=== PATIENT | male | born 1970 | race Two or more races ===

== ENCOUNTER 2022-05-31 14:01 | Inpatient (IN) | payer MEDICAID ==
[~2022-05-31] VITALS: Ht 167.6 cm; Wt 88.5 kg
[2022-05-31] MEDS ORDERED: MORPHINE SULFATE 2 MG/ML SYRINGE IVP ONE (14:30)
[2022-05-31] MEDS ORDERED: SODIUM CHLORIDE 0.9% 1,000 ML IV ONE ×3 (14:30→18:30)
[2022-05-31] MEDS ORDERED: PERMETHRIN 5% 60 GM CREAM TP ONE (14:30)
[2022-05-31 15:16] LABS: BASOPHILS % (AUTO) 0.4 % (0.0-2.0); EOSINOPHILS % (AUTO) 1.3 % (1.0-6.0); HEMATOCRIT 40.2 % (41-53); HEMOGLOBIN 13.1 g/dL (13.5-17.5); LYMPHOCYTES # (AUTO) 0.8 K/uL (1.0-4.8); LYMPHOCYTES % (AUTO) 8.4 % (22.0-44.0); MEAN CORPUSCULAR HEMOGLOBIN 30.2 pg (26.0-34.0); MEAN CORPUSCULAR HGB CONC 32.7 G/dL (31.0-37.0); MEAN CORPUSCULAR VOLUME 93 fL (80-100); MONOCYTES # (AUTO) 0.5 K/uL (0.1-1.0); MONOCYTES % (AUTO) 5.4 % (2.0-9.0); NEUTROPHILS # (AUTO) 8.2 K/uL (1.8-7.7); NEUTROPHILS % (AUTO) 84.5 % (40.0-70.0); PLATELET COUNT (AUTO) 298 K/uL (150-450); RED BLOOD CELL COUNT(AUTO) 4.34 MIL/uL (4.50-5.90); RED CELL DISTRIBUTION WIDTH 15.2 % (11.5-14.5)
[2022-05-31 15:20] LABS: ANION GAP 8 mmol/L (8-16); CALCIUM, TOTAL 8.9 mg/dL (8.8-10.5); CARBON DIOXIDE 28 mmol/L (22-29); CHLORIDE 93 mmol/L (98-107); CREATININE 1.14 mg/dL (0.60-1.30); GLOMERULAR FILTR. RATE CALC > 60 mL/min (>60); GLUCOSE,RANDOM 305 mg/dL (70-110); POTASSIUM 4.1 mmol/L (3.5-5.1); SODIUM SERUM 129 mmol/L (136-145); UREA NITROGEN, BLOOD 18 mg/dL (7-18)
[2022-05-31 15:44] LABS: CREATINE KINASE, TOTAL ONLY 382 U/L (39-308)
[2022-05-31] MEDS ORDERED: VANCOMYCIN 1GM/WATER(PEG/NADA) 200 ML IV ONE (16:00)
[2022-05-31 16:31] LABS: COVID AG,FIA SOURCE NASOPHARYNGEAL
[2022-05-31 16:55] LABS: LACTIC ACID 6.4 mmol/L (0.4-2.0)
[2022-05-31] MEDS ORDERED: MORPHINE SULFATE 4 MG/ML SYRINGE IVP PRN (18:30)
[2022-05-31] MEDS ORDERED: DEXTROSE 50%-WATER 25 GM/50 ML SYRINGE IVP PRN ×2 (18:30→23:15)
[2022-05-31] MEDS ORDERED: ONDANSETRON HCL 4 MG/2 ML VIAL IVP PRN ×2 (18:30→23:15)
[2022-05-31] MEDS ORDERED: INSULIN LISPRO 100 UNITS/ML SQ PRN (18:30)
[2022-05-31] MEDS ORDERED: ACETAMINOPHEN 325 MG TABLET PO PRN ×2 (18:30→23:15)
[2022-05-31] MEDS ORDERED: HYDROCODONE/ACETAMINOPHEN 5-325 MG TABLET PO PRN (18:30)
[2022-05-31 23:01] LABS: GLUCOMETER DEV NAME(LOC) ERT.5; GLUCOSE,POINT OF CARE 185 MG/DL (70-110)
[2022-05-31] MEDS ORDERED: BISACODYL 10 MG RECTAL RECTAL SUPPOSITORY PR PRN (23:15)
[2022-05-31] MEDS ORDERED: ALBUTEROL SULFATE 2.5 MG/0.5 ML NEB SOLUTION NEB PRN (23:15)
[2022-05-31] MEDS ORDERED: IPRATROPIUM BROMIDE 0.5 MG/2.5 ML NEB SOLUTION NEB PRN (23:15)
[2022-05-31] MEDS ORDERED: ZOLPIDEM TARTRATE 5 MG TABLET PO PRN (23:15)
[2022-06-01] MEDS ORDERED: VANCOMYCIN HCL 500 MG in DEXTROSE 5%-WATER 100 ML IV ONE ×2
[2022-06-01 00:28] VITALS: BP 142/93
[2022-06-01] MEDS: INSULIN LISPRO 100 UNITS/ML SQ PRN ×5 (01:34→20:23)
[2022-06-01] MEDS ORDERED: INFLUENZA VIRUS VACCINE QVS 2022-23 (6MO+)/PF 60 MCG/0.5 ML SYRINGE IM. ONE (03:45)
[2022-06-01 04:06] LABS: GLUCOMETER DEV NAME(LOC) 5N.1C; GLUCOSE,POINT OF CARE 214 MG/DL (70-110)
[2022-06-01 05:28] VITALS: BP 134/75
[2022-06-01] MEDS: PANTOPRAZOLE SODIUM 40 MG DR TABLET PO SCH (07:55)
[2022-06-01] MEDS: HEPARIN SODIUM,PORCINE 5,000 UNITS/ML VIAL SQ SCH ×4 (08:00→23:30)
[2022-06-01] MEDS ORDERED: VANCOMYCIN 1GM/WATER(PEG/NADA) 200 ML IV SCH (08:00)
[2022-06-01 08:03] LABS: ANION GAP 8 mmol/L (8-16); CALCIUM, TOTAL 7.9 mg/dL (8.8-10.5); CARBON DIOXIDE 25 mmol/L (22-29); CHLORIDE 104 mmol/L (98-107); CREATININE 0.89 mg/dL (0.60-1.30); GLOMERULAR FILTR. RATE CALC > 60 mL/min (>60); GLUCOSE,RANDOM 176 mg/dL (70-110); POTASSIUM 3.2 mmol/L (3.5-5.1); SODIUM SERUM 137 mmol/L (136-145); UREA NITROGEN, BLOOD 13 mg/dL (7-18)
[2022-06-01 08:21] VITALS: BP 139/80
[2022-06-01 11:55] VITALS: BP 137/74
[2022-06-01 12:22] LABS: GLUCOMETER DEV NAME(LOC) 5S.2B; GLUCOSE,POINT OF CARE 235 MG/DL (70-110)
[2022-06-01] MEDS: PIPERACILLIN/TAZO 3.375 GM/D5W 50 ML IV SCH ×2 (15:10→20:23)
[2022-06-01] MEDS ORDERED: POTASSIUM CHLORIDE 20 MEQ ER TABLET PO ONE (15:45)
[2022-06-01] MEDS: VANCOMYCIN HCL 750 MG in DEXTROSE 5%-WATER 250 ML IV SCH ×2 (15:45→23:30)
[2022-06-01 16:26] VITALS: BP 140/80
[2022-06-01] MEDS: HYDROCODONE/ACETAMINOPHEN 5-325 MG TABLET PO PRN (18:26)
[2022-06-01 20:08] VITALS: BP 136/76
[2022-06-01 22:56] LABS: GLUCOMETER DEV NAME(LOC) 5S.2B; GLUCOSE,POINT OF CARE 169 MG/DL (70-110)
[2022-06-02 00:02] LABS: GLUCOMETER DEV NAME(LOC) 6N.2B; GLUCOSE,POINT OF CARE 221 MG/DL (70-110)
[2022-06-02] MEDS: PIPERACILLIN/TAZO 3.375 GM/D5W 50 ML IV SCH ×6 (02:45→20:49)
[2022-06-02 05:31] VITALS: BP 125/73
[2022-06-02] MEDS: INSULIN LISPRO 100 UNITS/ML SQ PRN ×4 (06:27→21:00)
[2022-06-02 06:30] LABS: ANION GAP 5 mmol/L (8-16); CARBON DIOXIDE 25 mmol/L (22-29); CHLORIDE 103 mmol/L (98-107); CREATININE 0.92 mg/dL (0.60-1.30); GLUCOSE,RANDOM 207 mg/dL (70-110); PHOSPHORUS 3.1 mg/dL (2.5-4.9); POTASSIUM 3.4 mmol/L (3.5-5.1); SODIUM SERUM 133 mmol/L (136-145); UREA NITROGEN, BLOOD 9 mg/dL (7-18)
[2022-06-02 06:40] LABS: GLOMERULAR FILTR. RATE CALC > 60 mL/min (>60)
[2022-06-02 07:18] VITALS: BP 106/72
[2022-06-02] MEDS: VANCOMYCIN 1GM/WATER(PEG/NADA) 200 ML IV SCH ×3 (08:15→23:36)
[2022-06-02] MEDS: MULTIVITAMINS WITH MINERALS, THERAPEUTIC TABLET PO SCH (08:15)
[2022-06-02] MEDS: PANTOPRAZOLE SODIUM 40 MG DR TABLET PO SCH (08:15)
[2022-06-02] MEDS: HEPARIN SODIUM,PORCINE 5,000 UNITS/ML VIAL SQ SCH ×3 (08:15→23:35)
[2022-06-02 08:46] LABS: GLUCOMETER DEV NAME(LOC) 6N.2B; GLUCOSE,POINT OF CARE 211 MG/DL (70-110)
[2022-06-02] MEDS: HYDROCODONE/ACETAMINOPHEN 5-325 MG TABLET PO PRN (10:51)
[2022-06-02] MEDS ORDERED: POTASSIUM CHLORIDE 20 MEQ ER TABLET PO ONE (11:30)
[2022-06-02] MEDS ORDERED: GADOTERATE MEGLUMINE 10 MMOL/20 ML VIAL IVP ONE (14:00)
[2022-06-02 15:37] VITALS: BP 135/80
[2022-06-02 17:51] LABS: GLUCOMETER DEV NAME(LOC) 6N.1; GLUCOSE,POINT OF CARE 238 MG/DL (70-110)
[2022-06-02 19:51] LABS: GLUCOMETER DEV NAME(LOC) 6N.1; GLUCOSE,POINT OF CARE 179 MG/DL (70-110)
[2022-06-02 20:30] VITALS: BP 140/71
[2022-06-02 22:51] LABS: GLUCOMETER DEV NAME(LOC) 6N.1; GLUCOSE,POINT OF CARE 229 MG/DL (70-110)
[2022-06-03] MEDS: PIPERACILLIN/TAZO 3.375 GM/D5W 50 ML IV SCH ×4 (03:03→20:25)
[2022-06-03 05:15] VITALS: BP 146/75
[2022-06-03] MEDS: INSULIN LISPRO 100 UNITS/ML SQ PRN ×4 (05:52→20:25)
[2022-06-03 06:59] LABS: ANION GAP 8 mmol/L (8-16); C-REACTIVE PROTEIN QUANT 4.58 mg/dL (0.00-0.30); CALCIUM, TOTAL 8.3 mg/dL (8.8-10.5); CARBON DIOXIDE 26 mmol/L (22-29); CHLORIDE 103 mmol/L (98-107); CREATININE 0.86 mg/dL (0.60-1.30); GLUCOSE,RANDOM 187 mg/dL (70-110); POTASSIUM 3.8 mmol/L (3.5-5.1); SODIUM SERUM 137 mmol/L (136-145); UREA NITROGEN, BLOOD 6 mg/dL (7-18)
[2022-06-03 07:01] LABS: GLUCOMETER DEV NAME(LOC) 6N.2B; GLUCOSE,POINT OF CARE 199 MG/DL (70-110)
[2022-06-03 07:04] LABS: GLOMERULAR FILTR. RATE CALC > 60 mL/min (>60)
[2022-06-03] MEDS: VANCOMYCIN 1GM/WATER(PEG/NADA) 200 ML IV SCH ×3 (08:02→23:37)
[2022-06-03] MEDS: PANTOPRAZOLE SODIUM 40 MG DR TABLET PO SCH (08:03)
[2022-06-03] MEDS: HEPARIN SODIUM,PORCINE 5,000 UNITS/ML VIAL SQ SCH ×3 (08:03→23:36)
[2022-06-03] MEDS: MULTIVITAMINS WITH MINERALS, THERAPEUTIC TABLET PO SCH (08:03)
[2022-06-03 08:20] VITALS: BP 121/78
[2022-06-03 10:07] LABS: BASOPHILS % (AUTO) 0.9 % (0.0-2.0); EOSINOPHILS % (AUTO) 5.1 % (1.0-6.0); HEMOGLOBIN 9.4 g/dL (13.5-17.5); LYMPHOCYTES # (AUTO) 1.1 K/uL (1.0-4.8); LYMPHOCYTES % (AUTO) 25.9 % (22.0-44.0); MEAN CORPUSCULAR HGB CONC 32.5 G/dL (31.0-37.0); MEAN CORPUSCULAR VOLUME 93 fL (80-100); MONOCYTES # (AUTO) 0.3 K/uL (0.1-1.0); MONOCYTES % (AUTO) 7.1 % (2.0-9.0); NEUTROPHILS # (AUTO) 2.7 K/uL (1.8-7.7); PLATELET COUNT (AUTO) 188 K/uL (150-450); RED BLOOD CELL COUNT(AUTO) 3.13 MIL/uL (4.50-5.90); RED CELL DISTRIBUTION WIDTH 14.8 % (11.5-14.5)
[2022-06-03 10:50] LABS: ANION GAP 9 mmol/L (8-16); CARBON DIOXIDE 25 mmol/L (22-29); CHLORIDE 101 mmol/L (98-107); CREATININE 0.84 mg/dL (0.60-1.30); GLUCOSE,RANDOM 269 mg/dL (70-110); POTASSIUM 3.7 mmol/L (3.5-5.1); SODIUM SERUM 135 mmol/L (136-145); UREA NITROGEN, BLOOD 7 mg/dL (7-18)
[2022-06-03 10:54] LABS: GLOMERULAR FILTR. RATE CALC > 60 mL/min (>60)
[2022-06-03 10:56] LABS: ALANINE AMINOTRANSFERASE 23 U/L (12-78); ALBUMIN 2.1 g/dL (3.4-5.0); ALKALINE PHOSPHATASE 108 U/L (46-116); ASPARTATE AMINOTRANSFERASE 19 U/L (15-37); BILIRUBIN,TOTAL 0.4 mg/dL (0.1-1.0); TOTAL PROTEIN, SERUM 6.9 g/dL (6.4-8.2)
[2022-06-03 14:02] LABS: GLUCOMETER DEV NAME(LOC) 6N.2B; GLUCOSE,POINT OF CARE 243 MG/DL (70-110)
[2022-06-03 20:46] VITALS: BP 125/76
[2022-06-03 21:51] LABS: GLUCOMETER DEV NAME(LOC) 6N.2B; GLUCOSE,POINT OF CARE 179 MG/DL (70-110)
[2022-06-03 22:30] LABS: GLUCOMETER DEV NAME(LOC) 6N.1; GLUCOSE,POINT OF CARE 172 MG/DL (70-110)
[2022-06-04 04:28] VITALS: BP 134/84
[2022-06-04] MEDS: PIPERACILLIN/TAZO 3.375 GM/D5W 50 ML IV SCH ×3 (04:30→16:22)
[2022-06-04] MEDS: INSULIN LISPRO 100 UNITS/ML SQ PRN ×4 (05:35→21:02)
[2022-06-04 07:14] LABS: ANION GAP 11 mmol/L (8-16); CALCIUM, TOTAL 8.5 mg/dL (8.8-10.5); CARBON DIOXIDE 25 mmol/L (22-29); CHLORIDE 101 mmol/L (98-107); CREATININE 0.96 mg/dL (0.60-1.30); GLOMERULAR FILTR. RATE CALC > 60 mL/min (>60); GLUCOSE,RANDOM 181 mg/dL (70-110); POTASSIUM 3.7 mmol/L (3.5-5.1); SODIUM SERUM 137 mmol/L (136-145); UREA NITROGEN, BLOOD 7 mg/dL (7-18); VANCOMYCIN,RANDOM 22.6 mcg/mL (25.0-50.0)
[2022-06-04 07:16] LABS: GLUCOMETER DEV NAME(LOC) 6N.2B; GLUCOSE,POINT OF CARE 194 MG/DL (70-110)
[2022-06-04 08:35] VITALS: BP 143/88
[2022-06-04] MEDS: PANTOPRAZOLE SODIUM 40 MG DR TABLET PO SCH (08:53)
[2022-06-04] MEDS: MULTIVITAMINS WITH MINERALS, THERAPEUTIC TABLET PO SCH (08:53)
[2022-06-04] MEDS: HEPARIN SODIUM,PORCINE 5,000 UNITS/ML VIAL SQ SCH ×3 (08:53→23:49)
[2022-06-04] MEDS: VANCOMYCIN 1GM/WATER(PEG/NADA) 200 ML IV SCH (09:49)
[2022-06-04 11:31] LABS: GLUCOMETER DEV NAME(LOC) 6N.2B; GLUCOSE,POINT OF CARE 219 MG/DL (70-110)
[2022-06-04] MEDS ORDERED: SODIUM CHLORIDE 0.9% IRRIG BTL 1,000 ML IRRIG ONE (15:04)
[2022-06-04 16:00] VITALS: BP 138/70
[2022-06-04] MEDS ORDERED: VANCOMYCIN HCL 750 MG in DEXTROSE 5%-WATER 250 ML IV SCH (16:00)
[2022-06-04 20:16] LABS: GLUCOMETER DEV NAME(LOC) 6N.2B; GLUCOSE,POINT OF CARE 180 MG/DL (70-110)
[2022-06-04 20:20] VITALS: BP 142/79
[2022-06-04] MEDS ORDERED: SODIUM CHLORIDE 0.9% 500 ML IV ONE (21:00)
[2022-06-04] MEDS: AMPICILLIN SODIUM/SULBACTAM NA 3 GM in SODIUM CHLORIDE 0.9% 100 ML IV SCH (21:01)
[2022-06-04 21:47] LABS: GLUCOMETER DEV NAME(LOC) 6N.1; GLUCOSE,POINT OF CARE 223 MG/DL (70-110)
[2022-06-05 03:45] VITALS: BP 134/75
[2022-06-05] MEDS: AMPICILLIN SODIUM/SULBACTAM NA 3 GM in SODIUM CHLORIDE 0.9% 100 ML IV SCH ×4 (04:47→21:54)
[2022-06-05] MEDS: INSULIN LISPRO 100 UNITS/ML SQ PRN ×3 (05:57→21:52)
[2022-06-05 06:26] LABS: GLUCOMETER DEV NAME(LOC) 6N.2B; GLUCOSE,POINT OF CARE 179 MG/DL (70-110)
[2022-06-05 06:59] LABS: BASOPHILS % (AUTO) 0.7 % (0.0-2.0); EOSINOPHILS % (AUTO) 3.9 % (1.0-6.0); HEMATOCRIT 29.8 % (41-53); HEMOGLOBIN 9.9 g/dL (13.5-17.5); LYMPHOCYTES # (AUTO) 1.4 K/uL (1.0-4.8); MEAN CORPUSCULAR HEMOGLOBIN 30.3 pg (26.0-34.0); MEAN CORPUSCULAR HGB CONC 33.1 G/dL (31.0-37.0); MEAN CORPUSCULAR VOLUME 92 fL (80-100); MONOCYTES # (AUTO) 0.4 K/uL (0.1-1.0); MONOCYTES % (AUTO) 6.7 % (2.0-9.0); NEUTROPHILS # (AUTO) 4.2 K/uL (1.8-7.7); NEUTROPHILS % (AUTO) 66.7 % (40.0-70.0); PLATELET COUNT (AUTO) 241 K/uL (150-450); RED BLOOD CELL COUNT(AUTO) 3.26 MIL/uL (4.50-5.90); RED CELL DISTRIBUTION WIDTH 14.8 % (11.5-14.5)
[2022-06-05 07:25] VITALS: BP 135/81
[2022-06-05 07:43] LABS: ANION GAP 8 mmol/L (8-16); CALCIUM, TOTAL 8.2 mg/dL (8.8-10.5); CARBON DIOXIDE 25 mmol/L (22-29); CHLORIDE 105 mmol/L (98-107); CREATININE 0.83 mg/dL (0.60-1.30); GLOMERULAR FILTR. RATE CALC > 60 mL/min (>60); GLUCOSE,RANDOM 180 mg/dL (70-110); POTASSIUM 3.6 mmol/L (3.5-5.1); SODIUM SERUM 138 mmol/L (136-145); UREA NITROGEN, BLOOD 9 mg/dL (7-18)
[2022-06-05] MEDS: HEPARIN SODIUM,PORCINE 5,000 UNITS/ML VIAL SQ SCH ×3 (08:55→23:51)
[2022-06-05] MEDS: PANTOPRAZOLE SODIUM 40 MG DR TABLET PO SCH (08:55)
[2022-06-05] MEDS: MULTIVITAMINS WITH MINERALS, THERAPEUTIC TABLET PO SCH (08:55)
[2022-06-05 10:29] LABS: C-REACTIVE PROTEIN QUANT 2.21 mg/dL (0.00-0.30)
[2022-06-05 15:26] VITALS: BP 132/80
[2022-06-05 19:25] VITALS: BP 130/75
[2022-06-05 19:56] LABS: GLUCOMETER DEV NAME(LOC) 6N.1; GLUCOSE,POINT OF CARE 268 MG/DL (70-110)
[2022-06-05 20:01] LABS: GLUCOMETER DEV NAME(LOC) 6N.2B; GLUCOSE,POINT OF CARE 229 MG/DL (70-110)
[2022-06-05 20:01] LABS: GLUCOMETER DEV NAME(LOC) 6N.1; GLUCOSE,POINT OF CARE 155 MG/DL (70-110)
[2022-06-06 03:34] VITALS: BP 157/85
[2022-06-06] MEDS: AMPICILLIN SODIUM/SULBACTAM NA 3 GM in SODIUM CHLORIDE 0.9% 100 ML IV SCH ×4 (03:56→21:51)
[2022-06-06] MEDS ORDERED: SODIUM CHLORIDE 0.9% 500 ML IV ONE (04:22)
[2022-06-06 06:16] LABS: GLUCOMETER DEV NAME(LOC) 6N.2B; GLUCOSE,POINT OF CARE 149 MG/DL (70-110)
[2022-06-06] MEDS: INSULIN LISPRO 100 UNITS/ML SQ PRN ×3 (06:31→21:49)
[2022-06-06 06:57] LABS: ANION GAP 8 mmol/L (8-16); CALCIUM, TOTAL 8.4 mg/dL (8.8-10.5); CARBON DIOXIDE 27 mmol/L (22-29); CHLORIDE 103 mmol/L (98-107); GLUCOSE,RANDOM 178 mg/dL (70-110); POTASSIUM 3.7 mmol/L (3.5-5.1); SODIUM SERUM 138 mmol/L (136-145); UREA NITROGEN, BLOOD 9 mg/dL (7-18)
[2022-06-06 07:01] LABS: GLOMERULAR FILTR. RATE CALC > 60 mL/min (>60)
[2022-06-06 07:22] LABS: BASOPHILS % (AUTO) 0.6 % (0.0-2.0); EOSINOPHILS % (AUTO) 3.6 % (1.0-6.0); HEMATOCRIT 31.2 % (41-53); HEMOGLOBIN 10.3 g/dL (13.5-17.5); LYMPHOCYTES # (AUTO) 1.3 K/uL (1.0-4.8); LYMPHOCYTES % (AUTO) 17.5 % (22.0-44.0); MEAN CORPUSCULAR HGB CONC 32.9 G/dL (31.0-37.0); MEAN CORPUSCULAR VOLUME 91 fL (80-100); MONOCYTES # (AUTO) 0.4 K/uL (0.1-1.0); MONOCYTES % (AUTO) 5.8 % (2.0-9.0); NEUTROPHILS # (AUTO) 5.3 K/uL (1.8-7.7); NEUTROPHILS % (AUTO) 72.5 % (40.0-70.0); PLATELET COUNT (AUTO) 235 K/uL (150-450); RED BLOOD CELL COUNT(AUTO) 3.43 MIL/uL (4.50-5.90)
[2022-06-06 07:36] LABS: GLUCOMETER DEV NAME(LOC) 6N.2B; GLUCOSE,POINT OF CARE 163 MG/DL (70-110)
[2022-06-06 08:08] VITALS: BP 141/87
[2022-06-06] MEDS: HEPARIN SODIUM,PORCINE 5,000 UNITS/ML VIAL SQ SCH ×3 (08:32→23:15)
[2022-06-06] MEDS: MULTIVITAMINS WITH MINERALS, THERAPEUTIC TABLET PO SCH (08:32)
[2022-06-06] MEDS: PANTOPRAZOLE SODIUM 40 MG DR TABLET PO SCH (08:32)
[2022-06-06 13:06] LABS: GLUCOMETER DEV NAME(LOC) 6N.1; GLUCOSE,POINT OF CARE 147 MG/DL (70-110)
[2022-06-06 16:14] VITALS: BP 144/73
[2022-06-06 20:00] VITALS: BP 122/70
[2022-06-06 20:36] LABS: GLUCOMETER DEV NAME(LOC) 6N.1; GLUCOSE,POINT OF CARE 132 MG/DL (70-110)
[2022-06-06 22:32] LABS: GLUCOMETER DEV NAME(LOC) 6N.2B; GLUCOSE,POINT OF CARE 215 MG/DL (70-110)
[2022-06-07] MEDS: AMPICILLIN SODIUM/SULBACTAM NA 3 GM in SODIUM CHLORIDE 0.9% 100 ML IV SCH ×4 (03:55→23:10)
[2022-06-07 04:00] VITALS: BP 140/85
[2022-06-07] MEDS: INSULIN LISPRO 100 UNITS/ML SQ PRN ×4 (06:30→20:30)
[2022-06-07 06:53] LABS: BASOPHILS % (AUTO) 0.6 % (0.0-2.0); EOSINOPHILS % (AUTO) 3.7 % (1.0-6.0); HEMATOCRIT 31.1 % (41-53); HEMOGLOBIN 10.4 g/dL (13.5-17.5); LYMPHOCYTES # (AUTO) 1.3 K/uL (1.0-4.8); LYMPHOCYTES % (AUTO) 23.3 % (22.0-44.0); MEAN CORPUSCULAR HEMOGLOBIN 30.6 pg (26.0-34.0); MEAN CORPUSCULAR HGB CONC 33.5 G/dL (31.0-37.0); MEAN CORPUSCULAR VOLUME 92 fL (80-100); MONOCYTES # (AUTO) 0.4 K/uL (0.1-1.0); MONOCYTES % (AUTO) 6.5 % (2.0-9.0); NEUTROPHILS # (AUTO) 3.7 K/uL (1.8-7.7); NEUTROPHILS % (AUTO) 65.9 % (40.0-70.0); PLATELET COUNT (AUTO) 233 K/uL (150-450); RED BLOOD CELL COUNT(AUTO) 3.39 MIL/uL (4.50-5.90); RED CELL DISTRIBUTION WIDTH 15.1 % (11.5-14.5)
[2022-06-07 07:22] LABS: ANION GAP 8 mmol/L (8-16); C-REACTIVE PROTEIN QUANT 2.21 mg/dL (0.00-0.30); CALCIUM, TOTAL 8.7 mg/dL (8.8-10.5); CARBON DIOXIDE 27 mmol/L (22-29); CHLORIDE 103 mmol/L (98-107); CREATININE 0.95 mg/dL (0.60-1.30); GLUCOSE,RANDOM 175 mg/dL (70-110); POTASSIUM 3.8 mmol/L (3.5-5.1); SODIUM SERUM 138 mmol/L (136-145); UREA NITROGEN, BLOOD 12 mg/dL (7-18)
[2022-06-07 07:24] LABS: GLOMERULAR FILTR. RATE CALC > 60 mL/min (>60)
[2022-06-07 07:56] LABS: GLUCOMETER DEV NAME(LOC) 6N.2B; GLUCOSE,POINT OF CARE 161 MG/DL (70-110)
[2022-06-07 08:00] VITALS: BP 143/91
[2022-06-07] MEDS: HEPARIN SODIUM,PORCINE 5,000 UNITS/ML VIAL SQ SCH ×3 (08:41→23:11)
[2022-06-07] MEDS: MULTIVITAMINS WITH MINERALS, THERAPEUTIC TABLET PO SCH (08:41)
[2022-06-07] MEDS: PANTOPRAZOLE SODIUM 40 MG DR TABLET PO SCH (08:46)
[2022-06-07 13:36] LABS: GLUCOMETER DEV NAME(LOC) 6N.2B; GLUCOSE,POINT OF CARE 178 MG/DL (70-110)
[2022-06-07 15:11] VITALS: BP 128/85
[2022-06-07 18:36] LABS: GLUCOMETER DEV NAME(LOC) 6N.2B; GLUCOSE,POINT OF CARE 171 MG/DL (70-110)
[2022-06-07 20:00] VITALS: BP 132/75
[2022-06-07 21:31] LABS: GLUCOMETER DEV NAME(LOC) 6N.1; GLUCOSE,POINT OF CARE 222 MG/DL (70-110)
[2022-06-08] MEDS: AMPICILLIN SODIUM/SULBACTAM NA 3 GM in SODIUM CHLORIDE 0.9% 100 ML IV SCH ×4 (04:34→21:39)
[2022-06-08 05:00] VITALS: BP 153/81
[2022-06-08] MEDS: INSULIN LISPRO 100 UNITS/ML SQ PRN ×4 (05:37→21:49)
[2022-06-08 06:41] LABS: GLUCOMETER DEV NAME(LOC) 6N.2B; GLUCOSE,POINT OF CARE 170 MG/DL (70-110)
[2022-06-08] MEDS ORDERED: SODIUM CHLORIDE 0.9% 500 ML IV ONE (06:43)
[2022-06-08] MEDS: MULTIVITAMINS WITH MINERALS, THERAPEUTIC TABLET PO SCH (07:44)
[2022-06-08] MEDS: PANTOPRAZOLE SODIUM 40 MG DR TABLET PO SCH (07:44)
[2022-06-08] MEDS: HEPARIN SODIUM,PORCINE 5,000 UNITS/ML VIAL SQ SCH ×3 (07:44→23:20)
[2022-06-08 07:59] VITALS: BP 150/78
[2022-06-08 12:07] LABS: GLUCOMETER DEV NAME(LOC) 6N.2B; GLUCOSE,POINT OF CARE 217 MG/DL (70-110)
[2022-06-08 16:21] VITALS: BP 146/76
[2022-06-08 18:21] LABS: GLUCOMETER DEV NAME(LOC) 6N.2B; GLUCOSE,POINT OF CARE 144 MG/DL (70-110)
[2022-06-08 20:22] VITALS: BP 146/75
[2022-06-08 22:56] LABS: GLUCOMETER DEV NAME(LOC) 6N.1; GLUCOSE,POINT OF CARE 224 MG/DL (70-110)
[2022-06-09] MEDS: AMPICILLIN SODIUM/SULBACTAM NA 3 GM in SODIUM CHLORIDE 0.9% 100 ML IV SCH ×4 (04:22→21:17)
[2022-06-09] MEDS: MAGNESIUM HYDROXIDE SUSPENSION 30 ML UDCUP PO PRN (04:29)
[2022-06-09 04:44] VITALS: BP 140/81
[2022-06-09 05:54] LABS: BASOPHILS % (AUTO) 0.5 % (0.0-2.0); EOSINOPHILS % (AUTO) 3.6 % (1.0-6.0); HEMATOCRIT 31.1 % (41-53); HEMOGLOBIN 10.3 g/dL (13.5-17.5); LYMPHOCYTES # (AUTO) 1.5 K/uL (1.0-4.8); MEAN CORPUSCULAR HEMOGLOBIN 30.2 pg (26.0-34.0); MEAN CORPUSCULAR HGB CONC 33.1 G/dL (31.0-37.0); MEAN CORPUSCULAR VOLUME 91 fL (80-100); MONOCYTES # (AUTO) 0.4 K/uL (0.1-1.0); MONOCYTES % (AUTO) 6.2 % (2.0-9.0); NEUTROPHILS # (AUTO) 4.7 K/uL (1.8-7.7); NEUTROPHILS % (AUTO) 67.7 % (40.0-70.0); PLATELET COUNT (AUTO) 243 K/uL (150-450); RED CELL DISTRIBUTION WIDTH 15.1 % (11.5-14.5)
[2022-06-09] MEDS: INSULIN LISPRO 100 UNITS/ML SQ PRN ×3 (06:05→21:14)
[2022-06-09 06:09] LABS: ALANINE AMINOTRANSFERASE 31 U/L (12-78); ALBUMIN 2.7 g/dL (3.4-5.0); ALKALINE PHOSPHATASE 110 U/L (46-116); ANION GAP 7 mmol/L (8-16); ASPARTATE AMINOTRANSFERASE 27 U/L (15-37); BILIRUBIN,TOTAL 0.4 mg/dL (0.1-1.0); C-REACTIVE PROTEIN QUANT 1.42 mg/dL (0.00-0.30); CALCIUM, TOTAL 8.6 mg/dL (8.8-10.5); CARBON DIOXIDE 26 mmol/L (22-29); CHLORIDE 104 mmol/L (98-107); CREATININE 0.87 mg/dL (0.60-1.30); GLUCOSE,RANDOM 176 mg/dL (70-110); POTASSIUM 3.5 mmol/L (3.5-5.1); SODIUM SERUM 137 mmol/L (136-145); TOTAL PROTEIN, SERUM 7.8 g/dL (6.4-8.2); UREA NITROGEN, BLOOD 11 mg/dL (7-18)
[2022-06-09 06:11] LABS: GLOMERULAR FILTR. RATE CALC > 60 mL/min (>60)
[2022-06-09 07:59] VITALS: BP 149/84
[2022-06-09] MEDS: MULTIVITAMINS WITH MINERALS, THERAPEUTIC TABLET PO SCH (09:31)
[2022-06-09] MEDS: PANTOPRAZOLE SODIUM 40 MG DR TABLET PO SCH (09:31)
[2022-06-09] MEDS: HEPARIN SODIUM,PORCINE 5,000 UNITS/ML VIAL SQ SCH ×3 (09:31→23:24)
[2022-06-09 18:56] LABS: GLUCOMETER DEV NAME(LOC) 6N.2B; GLUCOSE,POINT OF CARE 173 MG/DL (70-110)
[2022-06-09 18:56] LABS: GLUCOMETER DEV NAME(LOC) 6N.2B; GLUCOSE,POINT OF CARE 167 MG/DL (70-110)
[2022-06-09 18:56] LABS: GLUCOMETER DEV NAME(LOC) 6N.1; GLUCOSE,POINT OF CARE 133 MG/DL (70-110)
[2022-06-09 20:00] VITALS: BP 131/79
[2022-06-09 23:36] LABS: GLUCOMETER DEV NAME(LOC) 6N.1; GLUCOSE,POINT OF CARE 197 MG/DL (70-110)
[2022-06-10] MEDS: AMPICILLIN SODIUM/SULBACTAM NA 3 GM in SODIUM CHLORIDE 0.9% 100 ML IV SCH ×4 (03:06→21:36)
[2022-06-10 05:10] VITALS: BP 135/67
[2022-06-10] MEDS: INSULIN LISPRO 100 UNITS/ML SQ PRN ×3 (05:43→21:37)
[2022-06-10 06:32] LABS: GLUCOMETER DEV NAME(LOC) 6N.2B; GLUCOSE,POINT OF CARE 153 MG/DL (70-110)
[2022-06-10 07:16] VITALS: BP 128/74
[2022-06-10] MEDS: PANTOPRAZOLE SODIUM 40 MG DR TABLET PO SCH (08:25)
[2022-06-10] MEDS: HEPARIN SODIUM,PORCINE 5,000 UNITS/ML VIAL SQ SCH ×3 (08:25→23:33)
[2022-06-10] MEDS: MULTIVITAMINS WITH MINERALS, THERAPEUTIC TABLET PO SCH (08:25)
[2022-06-10 12:26] LABS: GLUCOMETER DEV NAME(LOC) 6N.2B; GLUCOSE,POINT OF CARE 187 MG/DL (70-110)
[2022-06-10 15:00] VITALS: BP 136/81
[2022-06-10 17:47] LABS: GLUCOMETER DEV NAME(LOC) 6N.1; GLUCOSE,POINT OF CARE 114 MG/DL (70-110)
[2022-06-10 19:10] VITALS: BP 140/84
[2022-06-10 23:16] LABS: GLUCOMETER DEV NAME(LOC) 6N.2B; GLUCOSE,POINT OF CARE 155 MG/DL (70-110)
[2022-06-11] MEDS: AMPICILLIN SODIUM/SULBACTAM NA 3 GM in SODIUM CHLORIDE 0.9% 100 ML IV SCH ×4 (03:24→21:27)
[2022-06-11] MEDS ORDERED: SODIUM CHLORIDE 0.9% 500 ML IV ONE (03:24)
[2022-06-11 03:38] VITALS: BP 131/78
[2022-06-11] MEDS: INSULIN LISPRO 100 UNITS/ML SQ PRN ×4 (06:23→21:27)
[2022-06-11 07:26] VITALS: BP 132/76
[2022-06-11 07:26] LABS: GLUCOMETER DEV NAME(LOC) 6N.2B; GLUCOSE,POINT OF CARE 166 MG/DL (70-110)
[2022-06-11] MEDS: MULTIVITAMINS WITH MINERALS, THERAPEUTIC TABLET PO SCH (08:58)
[2022-06-11] MEDS: PANTOPRAZOLE SODIUM 40 MG DR TABLET PO SCH (08:58)
[2022-06-11] MEDS: HEPARIN SODIUM,PORCINE 5,000 UNITS/ML VIAL SQ SCH ×3 (08:58→23:33)
[2022-06-11 14:41] LABS: GLUCOMETER DEV NAME(LOC) 6N.2B; GLUCOSE,POINT OF CARE 162 MG/DL (70-110)
[2022-06-11 15:54] VITALS: BP 140/78
[2022-06-11 18:36] LABS: GLUCOMETER DEV NAME(LOC) 6N.2B; GLUCOSE,POINT OF CARE 182 MG/DL (70-110)
[2022-06-11 19:50] VITALS: BP 125/77
[2022-06-11 22:02] LABS: GLUCOMETER DEV NAME(LOC) 6N.2B; GLUCOSE,POINT OF CARE 178 MG/DL (70-110)
[2022-06-12] MEDS: AMPICILLIN SODIUM/SULBACTAM NA 3 GM in SODIUM CHLORIDE 0.9% 100 ML IV SCH ×4 (03:41→23:09)
[2022-06-12 04:25] VITALS: BP 135/79
[2022-06-12] MEDS: INSULIN LISPRO 100 UNITS/ML SQ PRN ×3 (06:41→20:12)
[2022-06-12 06:47] LABS: BASOPHILS % (AUTO) 0.8 % (0.0-2.0); EOSINOPHILS % (AUTO) 4.1 % (1.0-6.0); HEMATOCRIT 31.7 % (41-53); HEMOGLOBIN 10.9 g/dL (13.5-17.5); LYMPHOCYTES # (AUTO) 1.7 K/uL (1.0-4.8); LYMPHOCYTES % (AUTO) 27.8 % (22.0-44.0); MEAN CORPUSCULAR HEMOGLOBIN 31.4 pg (26.0-34.0); MEAN CORPUSCULAR HGB CONC 34.2 G/dL (31.0-37.0); MEAN CORPUSCULAR VOLUME 92 fL (80-100); MONOCYTES # (AUTO) 0.4 K/uL (0.1-1.0); NEUTROPHILS # (AUTO) 3.8 K/uL (1.8-7.7); NEUTROPHILS % (AUTO) 61.3 % (40.0-70.0); PLATELET COUNT (AUTO) 234 K/uL (150-450); RED BLOOD CELL COUNT(AUTO) 3.45 MIL/uL (4.50-5.90)
[2022-06-12 07:45] LABS: ALANINE AMINOTRANSFERASE 27 U/L (12-78); ALKALINE PHOSPHATASE 100 U/L (46-116); ANION GAP 7 mmol/L (8-16); ASPARTATE AMINOTRANSFERASE 21 U/L (15-37); BILIRUBIN,TOTAL 0.4 mg/dL (0.1-1.0); C-REACTIVE PROTEIN QUANT 0.79 mg/dL (0.00-0.30); CALCIUM, TOTAL 8.7 mg/dL (8.8-10.5); CARBON DIOXIDE 26 mmol/L (22-29); CHLORIDE 104 mmol/L (98-107); CREATININE 1.11 mg/dL (0.60-1.30); GLOMERULAR FILTR. RATE CALC > 60 mL/min (>60); GLUCOSE,RANDOM 150 mg/dL (70-110); POTASSIUM 3.9 mmol/L (3.5-5.1); SODIUM SERUM 137 mmol/L (136-145); TOTAL PROTEIN, SERUM 8.2 g/dL (6.4-8.2); UREA NITROGEN, BLOOD 17 mg/dL (7-18)
[2022-06-12 07:57] VITALS: BP 137/57
[2022-06-12] MEDS: HEPARIN SODIUM,PORCINE 5,000 UNITS/ML VIAL SQ SCH ×3 (08:47→23:09)
[2022-06-12] MEDS: PANTOPRAZOLE SODIUM 40 MG DR TABLET PO SCH (08:47)
[2022-06-12] MEDS: MULTIVITAMINS WITH MINERALS, THERAPEUTIC TABLET PO SCH (08:47)
[2022-06-12 13:36] LABS: GLUCOMETER DEV NAME(LOC) 6N.2B; GLUCOSE,POINT OF CARE 169 MG/DL (70-110)
[2022-06-12 13:36] LABS: GLUCOMETER DEV NAME(LOC) 6N.1; GLUCOSE,POINT OF CARE 174 MG/DL (70-110)
[2022-06-12 15:56] VITALS: BP 138/72
[2022-06-12 20:01] LABS: GLUCOMETER DEV NAME(LOC) 6N.1; GLUCOSE,POINT OF CARE 124 MG/DL (70-110)
[2022-06-12 20:02] VITALS: BP 123/65
[2022-06-12] MEDS: MAGNESIUM HYDROXIDE SUSPENSION 30 ML UDCUP PO PRN (20:06)
[2022-06-12 22:41] LABS: GLUCOMETER DEV NAME(LOC) 6N.1; GLUCOSE,POINT OF CARE 184 MG/DL (70-110)
[2022-06-13] MEDS: AMPICILLIN SODIUM/SULBACTAM NA 3 GM in SODIUM CHLORIDE 0.9% 100 ML IV SCH ×4 (04:19→21:39)
[2022-06-13 05:09] VITALS: BP 128/78
[2022-06-13] MEDS: INSULIN LISPRO 100 UNITS/ML SQ PRN ×3 (05:55→21:37)
[2022-06-13 06:51] LABS: GLUCOMETER DEV NAME(LOC) 6N.1; GLUCOSE,POINT OF CARE 142 MG/DL (70-110)
[2022-06-13] MEDS: PANTOPRAZOLE SODIUM 40 MG DR TABLET PO SCH (07:57)
[2022-06-13] MEDS: MULTIVITAMINS WITH MINERALS, THERAPEUTIC TABLET PO SCH (07:57)
[2022-06-13] MEDS: HEPARIN SODIUM,PORCINE 5,000 UNITS/ML VIAL SQ SCH ×2 (07:57→15:46)
[2022-06-13 08:17] VITALS: BP 114/75
[2022-06-13 11:15] LABS: GLUCOMETER DEV NAME(LOC) 6N.1; GLUCOSE,POINT OF CARE 184 MG/DL (70-110)
[2022-06-13 15:55] VITALS: BP 115/67
[2022-06-13] MEDS ORDERED: SODIUM CHLORIDE 0.9% 500 ML IV ONE (18:26)
[2022-06-13 19:51] LABS: GLUCOMETER DEV NAME(LOC) 6N.1; GLUCOSE,POINT OF CARE 90 MG/DL (70-110)
[2022-06-13 19:56] VITALS: BP 133/69
[2022-06-14] MEDS: HEPARIN SODIUM,PORCINE 5,000 UNITS/ML VIAL SQ SCH ×3 (00:40→15:42)
[2022-06-14 03:26] LABS: GLUCOMETER DEV NAME(LOC) 6N.1; GLUCOSE,POINT OF CARE 168 MG/DL (70-110)
[2022-06-14] MEDS: AMPICILLIN SODIUM/SULBACTAM NA 3 GM in SODIUM CHLORIDE 0.9% 100 ML IV SCH ×4 (03:55→21:44)
[2022-06-14 04:04] VITALS: BP 123/67
[2022-06-14] MEDS: INSULIN LISPRO 100 UNITS/ML SQ PRN ×4 (06:31→21:41)
[2022-06-14 06:52] LABS: GLUCOMETER DEV NAME(LOC) 6N.1; GLUCOSE,POINT OF CARE 143 MG/DL (70-110)
[2022-06-14 07:57] VITALS: BP 117/61
[2022-06-14] MEDS: PANTOPRAZOLE SODIUM 40 MG DR TABLET PO SCH (08:49)
[2022-06-14] MEDS: MULTIVITAMINS WITH MINERALS, THERAPEUTIC TABLET PO SCH (08:49)
[2022-06-14 16:02] LABS: GLUCOMETER DEV NAME(LOC) 6N.2B; GLUCOSE,POINT OF CARE 145 MG/DL (70-110)
[2022-06-14 16:06] VITALS: BP 125/65
[2022-06-14] MEDS ORDERED: SODIUM CL IRRIG SOLN BAG 6,000 ML IRRIG ONE (19:09)
[2022-06-14] MEDS ORDERED: SODIUM CHLORIDE 0.9% 1,000 ML ONE (19:23)
[2022-06-14] MEDS ORDERED: VANCOMYCIN HCL 1 GM/VIAL IRRIG ONE (19:36)
[2022-06-14 20:13] LABS: GLUCOMETER DEV NAME(LOC) 6N.2B; GLUCOSE,POINT OF CARE 150 MG/DL (70-110)
[2022-06-14 20:25] VITALS: BP 155/81
[2022-06-14] MEDS ORDERED: CHLORHEXIDINE GLUCONATE 4% 118 ML TOPICAL LIQUID TP ONE (20:29)
[2022-06-14 22:46] LABS: GLUCOMETER DEV NAME(LOC) 6N.2B; GLUCOSE,POINT OF CARE 164 MG/DL (70-110)
[2022-06-15] MEDS: AMPICILLIN SODIUM/SULBACTAM NA 3 GM in SODIUM CHLORIDE 0.9% 100 ML IV SCH ×4 (04:20→21:22)
[2022-06-15] MEDS: MAGNESIUM HYDROXIDE SUSPENSION 30 ML UDCUP PO PRN (04:32)
[2022-06-15 04:36] VITALS: BP 131/87
[2022-06-15] MEDS ORDERED: 0.9% SODIUM CHLORIDE 10 ML VIAL IVP ONE (06:41)
[2022-06-15] MEDS ORDERED: DEXAMETHASONE SOD PHOS 4 MG/ML VIAL IVP ONE (06:41)
[2022-06-15] MEDS ORDERED: ROCURONIUM BROMIDE 10 MG/ML 5 ML VIAL IVP ONE (06:41)
[2022-06-15] MEDS ORDERED: ONDANSETRON HCL 4 MG/2 ML VIAL IVP ONE (06:41)
[2022-06-15] MEDS ORDERED: KETOROLAC TROMETHAMINE 60 MG/2 ML VIAL IM ONE (06:41)
[2022-06-15] MEDS ORDERED: LIDOCAINE/PF 2% 5 ML VIAL IM ONE (06:41)
[2022-06-15] MEDS ORDERED: PROPOFOL 1% 20 ML VIAL IVP ONE (06:41)
[2022-06-15] MEDS: INSULIN LISPRO 100 UNITS/ML SQ PRN ×4 (06:52→21:21)
[2022-06-15] MEDS: PANTOPRAZOLE SODIUM 40 MG DR TABLET PO SCH (08:37)
[2022-06-15] MEDS: HEPARIN SODIUM,PORCINE 5,000 UNITS/ML VIAL SQ SCH ×4 (08:37→23:57)
[2022-06-15] MEDS: MULTIVITAMINS WITH MINERALS, THERAPEUTIC TABLET PO SCH (08:37)
[2022-06-15 09:04] VITALS: BP 127/60
[2022-06-15 09:43] LABS: GLUCOMETER DEV NAME(LOC) 6N.2B; GLUCOSE,POINT OF CARE 230 MG/DL (70-110)
[2022-06-15] MEDS ORDERED: SODIUM CL IRRIG SOLN BOTTLE 250 ML IRRIG ONE (13:19)
[2022-06-15 14:07] LABS: GLUCOMETER DEV NAME(LOC) 6N.2B; GLUCOSE,POINT OF CARE 220 MG/DL (70-110)
[2022-06-15] MEDS: MORPHINE SULFATE 2 MG/ML SYRINGE IVP PRN (14:23)
[2022-06-15 16:06] VITALS: BP 114/75
[2022-06-15 19:46] VITALS: BP 112/60
[2022-06-15] MEDS ORDERED: SODIUM CHLORIDE 0.9% 500 ML IV ONE (19:51)
[2022-06-16] MEDS: AMPICILLIN SODIUM/SULBACTAM NA 3 GM in SODIUM CHLORIDE 0.9% 100 ML IV SCH ×4 (03:32→21:10)
[2022-06-16 03:54] LABS: GLUCOMETER DEV NAME(LOC) 6N.2B; GLUCOSE,POINT OF CARE 227 MG/DL (70-110)
[2022-06-16 03:54] LABS: GLUCOMETER DEV NAME(LOC) 6N.2B; GLUCOSE,POINT OF CARE 171 MG/DL (70-110)
[2022-06-16 04:56] VITALS: BP 114/70
[2022-06-16 05:44] LABS: BASOPHILS % (AUTO) 0.6 % (0.0-2.0); EOSINOPHILS % (AUTO) 1.5 % (1.0-6.0); HEMATOCRIT 28.8 % (41-53); HEMOGLOBIN 9.9 g/dL (13.5-17.5); LYMPHOCYTES % (AUTO) 31.6 % (22.0-44.0); MEAN CORPUSCULAR HEMOGLOBIN 31.5 pg (26.0-34.0); MEAN CORPUSCULAR HGB CONC 34.5 G/dL (31.0-37.0); MEAN CORPUSCULAR VOLUME 91 fL (80-100); MONOCYTES # (AUTO) 0.4 K/uL (0.1-1.0); MONOCYTES % (AUTO) 6.8 % (2.0-9.0); NEUTROPHILS # (AUTO) 3.7 K/uL (1.8-7.7); NEUTROPHILS % (AUTO) 59.5 % (40.0-70.0); PLATELET COUNT (AUTO) 165 K/uL (150-450); RED BLOOD CELL COUNT(AUTO) 3.16 MIL/uL (4.50-5.90); RED CELL DISTRIBUTION WIDTH 15.2 % (11.5-14.5)
[2022-06-16 06:07] LABS: ALANINE AMINOTRANSFERASE 21 U/L (12-78); ALBUMIN 2.9 g/dL (3.4-5.0); ALKALINE PHOSPHATASE 79 U/L (46-116); ANION GAP 7 mmol/L (8-16); ASPARTATE AMINOTRANSFERASE 16 U/L (15-37); BILIRUBIN,TOTAL 0.3 mg/dL (0.1-1.0); C-REACTIVE PROTEIN QUANT 0.32 mg/dL (0.00-0.30); CALCIUM, TOTAL 8.2 mg/dL (8.8-10.5); CARBON DIOXIDE 26 mmol/L (22-29); CHLORIDE 107 mmol/L (98-107); CREATININE 0.99 mg/dL (0.60-1.30); GLUCOSE,RANDOM 183 mg/dL (70-110); POTASSIUM 3.8 mmol/L (3.5-5.1); SODIUM SERUM 140 mmol/L (136-145); TOTAL PROTEIN, SERUM 7.3 g/dL (6.4-8.2); UREA NITROGEN, BLOOD 16 mg/dL (7-18)
[2022-06-16 06:26] LABS: GLOMERULAR FILTR. RATE CALC > 60 mL/min (>60)
[2022-06-16] MEDS: INSULIN LISPRO 100 UNITS/ML SQ PRN ×4 (06:30→21:05)
[2022-06-16] MEDS ORDERED: FentaNYL CITRATE PF 100 MCG/2 ML VIAL IVP ONE (06:40)
[2022-06-16] MEDS ORDERED: MIDAZOLAM HCL 2 MG/2 ML VIAL IVP ONE (06:40)
[2022-06-16 07:57] VITALS: BP 123/64
[2022-06-16] MEDS: PANTOPRAZOLE SODIUM 40 MG DR TABLET PO SCH (08:06)
[2022-06-16] MEDS: MULTIVITAMINS WITH MINERALS, THERAPEUTIC TABLET PO SCH (08:06)
[2022-06-16] MEDS: HEPARIN SODIUM,PORCINE 5,000 UNITS/ML VIAL SQ SCH ×3 (08:06→23:44)
[2022-06-16 12:01] LABS: GLUCOMETER DEV NAME(LOC) 6N.2B; GLUCOSE,POINT OF CARE 149 MG/DL (70-110)
[2022-06-16 15:16] LABS: GLUCOMETER DEV NAME(LOC) 6N.1; GLUCOSE,POINT OF CARE 168 MG/DL (70-110)
[2022-06-16 16:03] VITALS: BP 111/68
[2022-06-16 19:58] VITALS: BP 115/65
[2022-06-16 20:11] LABS: GLUCOMETER DEV NAME(LOC) 6N.2B; GLUCOSE,POINT OF CARE 193 MG/DL (70-110)
[2022-06-16 22:36] LABS: GLUCOMETER DEV NAME(LOC) 6N.2B; GLUCOSE,POINT OF CARE 255 MG/DL (70-110)
[2022-06-17] MEDS: AMPICILLIN SODIUM/SULBACTAM NA 3 GM in SODIUM CHLORIDE 0.9% 100 ML IV SCH ×4 (04:03→21:30)
[2022-06-17 04:09] VITALS: BP 90/69
[2022-06-17 08:00] VITALS: BP 98/71
[2022-06-17] MEDS: MULTIVITAMINS WITH MINERALS, THERAPEUTIC TABLET PO SCH (08:41)
[2022-06-17] MEDS: PANTOPRAZOLE SODIUM 40 MG DR TABLET PO SCH (08:41)
[2022-06-17] MEDS: HEPARIN SODIUM,PORCINE 5,000 UNITS/ML VIAL SQ SCH ×2 (08:42→15:20)
[2022-06-17 09:16] LABS: GLUCOMETER DEV NAME(LOC) 6N.1; GLUCOSE,POINT OF CARE 140 MG/DL (70-110)
[2022-06-17] MEDS: INSULIN LISPRO 100 UNITS/ML SQ PRN ×3 (11:58→20:49)
[2022-06-17 17:19] VITALS: BP 138/92
[2022-06-17] MEDS ORDERED: SODIUM CHLORIDE 0.9% IRRIG BTL 1,000 ML IRRIG ONE (17:33)
[2022-06-17] MEDS: HYDROCODONE/ACETAMINOPHEN 5-325 MG TABLET PO PRN (17:44)
[2022-06-17 19:45] VITALS: BP 126/73
[2022-06-17 22:07] LABS: GLUCOMETER DEV NAME(LOC) 6N.2B; GLUCOSE,POINT OF CARE 193 MG/DL (70-110)
[2022-06-17 23:46] LABS: GLUCOMETER DEV NAME(LOC) 6N.1; GLUCOSE,POINT OF CARE 273 MG/DL (70-110)
[2022-06-17 23:46] LABS: GLUCOMETER DEV NAME(LOC) 6N.1; GLUCOSE,POINT OF CARE 184 MG/DL (70-110)
[2022-06-18] MEDS: HEPARIN SODIUM,PORCINE 5,000 UNITS/ML VIAL SQ SCH ×4 (01:01→23:48)
[2022-06-18] MEDS: AMPICILLIN SODIUM/SULBACTAM NA 3 GM in SODIUM CHLORIDE 0.9% 100 ML IV SCH ×4 (04:00→21:54)
[2022-06-18 05:05] VITALS: BP 118/60
[2022-06-18] MEDS: INSULIN LISPRO 100 UNITS/ML SQ PRN ×3 (05:16→17:46)
[2022-06-18] MEDS: PANTOPRAZOLE SODIUM 40 MG DR TABLET PO SCH (08:37)
[2022-06-18] MEDS: MULTIVITAMINS WITH MINERALS, THERAPEUTIC TABLET PO SCH (08:37)
[2022-06-18 08:44] VITALS: BP 129/69
[2022-06-18] MEDS ORDERED: SODIUM CHLORIDE 0.9% 500 ML IV ONE (11:56)
[2022-06-18 12:01] LABS: GLUCOMETER DEV NAME(LOC) 6N.2B; GLUCOSE,POINT OF CARE 169 MG/DL (70-110)
[2022-06-18 12:02] LABS: GLUCOMETER DEV NAME(LOC) 6N.2B; GLUCOSE,POINT OF CARE 157 MG/DL (70-110)
[2022-06-18 15:50] VITALS: BP 118/77
[2022-06-18] MEDS: HYDROCODONE/ACETAMINOPHEN 5-325 MG TABLET PO PRN (17:49)
[2022-06-18 18:51] LABS: GLUCOMETER DEV NAME(LOC) 6N.1; GLUCOSE,POINT OF CARE 109 MG/DL (70-110)
[2022-06-18 20:30] VITALS: BP 137/76
[2022-06-19] MEDS: AMPICILLIN SODIUM/SULBACTAM NA 3 GM in SODIUM CHLORIDE 0.9% 100 ML IV SCH ×4 (04:11→21:36)
[2022-06-19 04:23] VITALS: BP 129/69
[2022-06-19 07:04] LABS: BASOPHILS % (AUTO) 0.9 % (0.0-2.0); EOSINOPHILS % (AUTO) 5.1 % (1.0-6.0); HEMATOCRIT 34.5 % (41-53); HEMOGLOBIN 11.4 g/dL (13.5-17.5); LYMPHOCYTES # (AUTO) 1.5 K/uL (1.0-4.8); LYMPHOCYTES % (AUTO) 30.3 % (22.0-44.0); MEAN CORPUSCULAR HEMOGLOBIN 30.6 pg (26.0-34.0); MEAN CORPUSCULAR HGB CONC 33.1 G/dL (31.0-37.0); MEAN CORPUSCULAR VOLUME 92 fL (80-100); MONOCYTES # (AUTO) 0.3 K/uL (0.1-1.0); MONOCYTES % (AUTO) 6.7 % (2.0-9.0); NEUTROPHILS # (AUTO) 2.8 K/uL (1.8-7.7); PLATELET COUNT (AUTO) 148 K/uL (150-450); RED BLOOD CELL COUNT(AUTO) 3.73 MIL/uL (4.50-5.90); RED CELL DISTRIBUTION WIDTH 15.2 % (11.5-14.5)
[2022-06-19 07:40] LABS: ALANINE AMINOTRANSFERASE 29 U/L (12-78); ALBUMIN 3.3 g/dL (3.4-5.0); ALKALINE PHOSPHATASE 94 U/L (46-116); ANION GAP 8 mmol/L (8-16); ASPARTATE AMINOTRANSFERASE 25 U/L (15-37); BILIRUBIN,TOTAL 0.5 mg/dL (0.1-1.0); C-REACTIVE PROTEIN QUANT 0.36 mg/dL (0.00-0.30); CALCIUM, TOTAL 8.9 mg/dL (8.8-10.5); CARBON DIOXIDE 29 mmol/L (22-29); CHLORIDE 103 mmol/L (98-107); CREATININE 1.05 mg/dL (0.60-1.30); GLUCOSE,RANDOM 133 mg/dL (70-110); POTASSIUM 3.9 mmol/L (3.5-5.1); SODIUM SERUM 140 mmol/L (136-145); UREA NITROGEN, BLOOD 12 mg/dL (7-18)
[2022-06-19 07:41] LABS: GLOMERULAR FILTR. RATE CALC > 60 mL/min (>60)
[2022-06-19 08:00] VITALS: BP 120/70
[2022-06-19] MEDS: PANTOPRAZOLE SODIUM 40 MG DR TABLET PO SCH (09:00)
[2022-06-19] MEDS: MULTIVITAMINS WITH MINERALS, THERAPEUTIC TABLET PO SCH (09:29)
[2022-06-19] MEDS: HEPARIN SODIUM,PORCINE 5,000 UNITS/ML VIAL SQ SCH ×3 (09:30→23:37)
[2022-06-19 10:46] LABS: GLUCOMETER DEV NAME(LOC) 6N.1; GLUCOSE,POINT OF CARE 94 MG/DL (70-110)
[2022-06-19 10:46] LABS: GLUCOMETER DEV NAME(LOC) 6N.1; GLUCOSE,POINT OF CARE 132 MG/DL (70-110)
[2022-06-19 13:31] LABS: GLUCOMETER DEV NAME(LOC) 6N.1; GLUCOSE,POINT OF CARE 138 MG/DL (70-110)
[2022-06-19 15:29] VITALS: BP 123/74
[2022-06-19] MEDS: HYDROCODONE/ACETAMINOPHEN 5-325 MG TABLET PO PRN (16:34)
[2022-06-19 20:34] VITALS: BP 107/66
[2022-06-19] MEDS: INSULIN LISPRO 100 UNITS/ML SQ PRN (21:37)
[2022-06-19] MEDS ORDERED: SODIUM CHLORIDE 0.9% 500 ML IV ONE (21:40)
[2022-06-20] MEDS: AMPICILLIN SODIUM/SULBACTAM NA 3 GM in SODIUM CHLORIDE 0.9% 100 ML IV SCH ×4 (03:25→21:31)
[2022-06-20 04:11] VITALS: BP 109/62
[2022-06-20 07:49] VITALS: BP 120/68
[2022-06-20] MEDS: MULTIVITAMINS WITH MINERALS, THERAPEUTIC TABLET PO SCH (09:15)
[2022-06-20] MEDS: PANTOPRAZOLE SODIUM 40 MG DR TABLET PO SCH (09:15)
[2022-06-20] MEDS: HEPARIN SODIUM,PORCINE 5,000 UNITS/ML VIAL SQ SCH ×3 (09:20→23:17)
[2022-06-20] MEDS: INSULIN LISPRO 100 UNITS/ML SQ PRN ×2 (12:03→21:32)
[2022-06-20 14:16] LABS: GLUCOMETER DEV NAME(LOC) 6N.1; GLUCOSE,POINT OF CARE 133 MG/DL (70-110)
[2022-06-20 14:16] LABS: GLUCOMETER DEV NAME(LOC) 6N.1; GLUCOSE,POINT OF CARE 156 MG/DL (70-110)
[2022-06-20 15:50] VITALS: BP 135/84
[2022-06-20] MEDS: HYDROCODONE/ACETAMINOPHEN 5-325 MG TABLET PO PRN (17:42)
[2022-06-20 20:06] LABS: GLUCOMETER DEV NAME(LOC) 6N.2B; GLUCOSE,POINT OF CARE 85 MG/DL (70-110)
[2022-06-20 20:06] LABS: GLUCOMETER DEV NAME(LOC) 6N.2B; GLUCOSE,POINT OF CARE 108 MG/DL (70-110)
[2022-06-20 20:06] LABS: GLUCOMETER DEV NAME(LOC) 6N.2B; GLUCOSE,POINT OF CARE 156 MG/DL (70-110)
[2022-06-20 20:34] VITALS: BP 119/72
[2022-06-20 23:16] LABS: GLUCOMETER DEV NAME(LOC) 6N.1; GLUCOSE,POINT OF CARE 171 MG/DL (70-110)
[2022-06-21] MEDS: AMPICILLIN SODIUM/SULBACTAM NA 3 GM in SODIUM CHLORIDE 0.9% 100 ML IV SCH ×4 (03:46→21:28)
[2022-06-21 04:22] VITALS: BP 130/68
[2022-06-21 07:31] LABS: GLUCOMETER DEV NAME(LOC) 6N.1; GLUCOSE,POINT OF CARE 101 MG/DL (70-110)
[2022-06-21 07:33] VITALS: BP 129/63
[2022-06-21] MEDS: HEPARIN SODIUM,PORCINE 5,000 UNITS/ML VIAL SQ SCH ×3 (08:41→23:30)
[2022-06-21] MEDS: MULTIVITAMINS WITH MINERALS, THERAPEUTIC TABLET PO SCH (08:41)
[2022-06-21] MEDS: PANTOPRAZOLE SODIUM 40 MG DR TABLET PO SCH (08:41)
[2022-06-21 11:36] VITALS: BP 116/73
[2022-06-21 13:01] LABS: GLUCOMETER DEV NAME(LOC) 6N.2B; GLUCOSE,POINT OF CARE 110 MG/DL (70-110)
[2022-06-21] MEDS: HYDROCODONE/ACETAMINOPHEN 5-325 MG TABLET PO PRN (16:02)
[2022-06-21] MEDS ORDERED: SODIUM CHLORIDE 0.9% 500 ML IV ONE (16:06)
[2022-06-21 19:56] LABS: GLUCOMETER DEV NAME(LOC) 6N.2B; GLUCOSE,POINT OF CARE 99 MG/DL (70-110)
[2022-06-21 20:00] VITALS: BP 115/76
[2022-06-21] MEDS: INSULIN LISPRO 100 UNITS/ML SQ PRN (20:32)
[2022-06-21 21:02] LABS: GLUCOMETER DEV NAME(LOC) 6N.2B; GLUCOSE,POINT OF CARE 188 MG/DL (70-110)
[2022-06-22] MEDS: AMPICILLIN SODIUM/SULBACTAM NA 3 GM in SODIUM CHLORIDE 0.9% 100 ML IV SCH ×2 (04:09→10:39)
[2022-06-22 07:22] LABS: GLUCOMETER DEV NAME(LOC) 6N.2B; GLUCOSE,POINT OF CARE 123 MG/DL (70-110)
[2022-06-22 07:46] LABS: ANION GAP 7 mmol/L (8-16); CALCIUM, TOTAL 8.8 mg/dL (8.8-10.5); CARBON DIOXIDE 27 mmol/L (22-29); CHLORIDE 104 mmol/L (98-107); CREATININE 0.96 mg/dL (0.60-1.30); GLUCOSE,RANDOM 132 mg/dL (70-110); POTASSIUM 3.9 mmol/L (3.5-5.1); SODIUM SERUM 138 mmol/L (136-145); UREA NITROGEN, BLOOD 12 mg/dL (7-18)
[2022-06-22 07:48] LABS: GLOMERULAR FILTR. RATE CALC > 60 mL/min (>60)
[2022-06-22 07:51] LABS: BASOPHILS % (AUTO) 0.5 % (0.0-2.0); EOSINOPHILS % (AUTO) 4.6 % (1.0-6.0); HEMATOCRIT 31.7 % (41-53); HEMOGLOBIN 10.4 g/dL (13.5-17.5); LYMPHOCYTES # (AUTO) 1.5 K/uL (1.0-4.8); LYMPHOCYTES % (AUTO) 29.2 % (22.0-44.0); MEAN CORPUSCULAR HEMOGLOBIN 30.2 pg (26.0-34.0); MEAN CORPUSCULAR HGB CONC 32.7 G/dL (31.0-37.0); MEAN CORPUSCULAR VOLUME 92 fL (80-100); MONOCYTES # (AUTO) 0.4 K/uL (0.1-1.0); MONOCYTES % (AUTO) 8.2 % (2.0-9.0); NEUTROPHILS % (AUTO) 57.5 % (40.0-70.0); PLATELET COUNT (AUTO) 129 K/uL (150-450); RED BLOOD CELL COUNT(AUTO) 3.44 MIL/uL (4.50-5.90); RED CELL DISTRIBUTION WIDTH 15.2 % (11.5-14.5)
[2022-06-22 07:54] VITALS: BP 109/68
[2022-06-22] MEDS: PANTOPRAZOLE SODIUM 40 MG DR TABLET PO SCH (08:02)
[2022-06-22] MEDS: MULTIVITAMINS WITH MINERALS, THERAPEUTIC TABLET PO SCH (08:02)
[2022-06-22] MEDS: HEPARIN SODIUM,PORCINE 5,000 UNITS/ML VIAL SQ SCH ×3 (08:02→23:38)
[2022-06-22 12:23] LABS: GLUCOMETER DEV NAME(LOC) 6N.1; GLUCOSE,POINT OF CARE 150 MG/DL (70-110)
[2022-06-22] MEDS: HYDROCODONE/ACETAMINOPHEN 5-325 MG TABLET PO PRN (13:29)
[2022-06-22 15:18] VITALS: BP 107/54
[2022-06-22 19:52] VITALS: BP 105/60
[2022-06-22 19:53] LABS: GLUCOMETER DEV NAME(LOC) 6N.2B; GLUCOSE,POINT OF CARE 109 MG/DL (70-110)
[2022-06-22] MEDS: INSULIN LISPRO 100 UNITS/ML SQ PRN (20:55)
[2022-06-23 05:01] VITALS: BP 127/63
[2022-06-23 05:38] LABS: GLUCOMETER DEV NAME(LOC) 6N.2B; GLUCOSE,POINT OF CARE 146 MG/DL (70-110)
[2022-06-23 07:46] VITALS: BP 108/59
[2022-06-23 08:08] LABS: GLUCOMETER DEV NAME(LOC) 6N.1; GLUCOSE,POINT OF CARE 118 MG/DL (70-110)
[2022-06-23] MEDS: HEPARIN SODIUM,PORCINE 5,000 UNITS/ML VIAL SQ SCH ×2 (08:23→16:51)
[2022-06-23] MEDS: PANTOPRAZOLE SODIUM 40 MG DR TABLET PO SCH (08:23)
[2022-06-23] MEDS: MULTIVITAMINS WITH MINERALS, THERAPEUTIC TABLET PO SCH (08:23)
[2022-06-23] MEDS ORDERED: SODIUM CHLORIDE 0.9% IRRIG BTL 1,000 ML IRRIG ONE (10:51)
[2022-06-23] MEDS: HYDROCODONE/ACETAMINOPHEN 5-325 MG TABLET PO PRN (11:00)
[2022-06-23] MEDS: INSULIN LISPRO 100 UNITS/ML SQ PRN ×3 (11:52→20:58)
[2022-06-23 11:54] LABS: GLUCOMETER DEV NAME(LOC) 6N.2B; GLUCOSE,POINT OF CARE 143 MG/DL (70-110)
[2022-06-23 16:00] VITALS: BP 127/58
[2022-06-23 20:00] VITALS: BP 128/69
[2022-06-23 22:53] LABS: GLUCOMETER DEV NAME(LOC) 6N.1; GLUCOSE,POINT OF CARE 175 MG/DL (70-110)
[2022-06-23 22:53] LABS: GLUCOMETER DEV NAME(LOC) 6N.2B; GLUCOSE,POINT OF CARE 86 MG/DL (70-110)
[2022-06-24] MEDS: HEPARIN SODIUM,PORCINE 5,000 UNITS/ML VIAL SQ SCH ×4 (00:12→23:16)
[2022-06-24 04:18] VITALS: BP 110/66
[2022-06-24 05:17] VITALS: BP 134/86
[2022-06-24 06:23] LABS: GLUCOMETER DEV NAME(LOC) 6N.1; GLUCOSE,POINT OF CARE 116 MG/DL (70-110)
[2022-06-24 07:28] VITALS: BP 124/79
[2022-06-24] MEDS: PANTOPRAZOLE SODIUM 40 MG DR TABLET PO SCH (08:15)
[2022-06-24] MEDS: MULTIVITAMINS WITH MINERALS, THERAPEUTIC TABLET PO SCH (08:15)
[2022-06-24] MEDS: INSULIN LISPRO 100 UNITS/ML SQ PRN (11:14)
[2022-06-24 15:16] VITALS: BP 125/71
[2022-06-24 16:52] LABS: GLUCOMETER DEV NAME(LOC) 6N.2B; GLUCOSE,POINT OF CARE 177 MG/DL (70-110)
[2022-06-24] MEDS: HYDROCODONE/ACETAMINOPHEN 5-325 MG TABLET PO PRN (17:11)
[2022-06-24 20:00] VITALS: BP 127/71
[2022-06-25 03:43] LABS: GLUCOMETER DEV NAME(LOC) 6N.1; GLUCOSE,POINT OF CARE 106 MG/DL (70-110)
[2022-06-25 03:43] LABS: GLUCOMETER DEV NAME(LOC) 6N.2B; GLUCOSE,POINT OF CARE 132 MG/DL (70-110)
[2022-06-25 05:00] VITALS: BP 124/74
[2022-06-25 07:17] LABS: GLUCOMETER DEV NAME(LOC) 6N.1; GLUCOSE,POINT OF CARE 120 MG/DL (70-110)
[2022-06-25] MEDS: MULTIVITAMINS WITH MINERALS, THERAPEUTIC TABLET PO SCH (07:54)
[2022-06-25] MEDS: PANTOPRAZOLE SODIUM 40 MG DR TABLET PO SCH (07:55)
[2022-06-25] MEDS: HEPARIN SODIUM,PORCINE 5,000 UNITS/ML VIAL SQ SCH ×3 (07:55→23:01)
[2022-06-25 08:55] VITALS: BP 100/59
[2022-06-25] MEDS: MORPHINE SULFATE 2 MG/ML SYRINGE IVP PRN (12:06)
[2022-06-25 15:18] LABS: GLUCOMETER DEV NAME(LOC) 6N.1; GLUCOSE,POINT OF CARE 121 MG/DL (70-110)
[2022-06-25 16:29] VITALS: BP 117/65
[2022-06-25 18:48] LABS: GLUCOMETER DEV NAME(LOC) 6N.1; GLUCOSE,POINT OF CARE 90 MG/DL (70-110)
[2022-06-25 22:13] LABS: GLUCOMETER DEV NAME(LOC) 6N.1; GLUCOSE,POINT OF CARE 124 MG/DL (70-110)
[2022-06-26] MEDS: HYDROCODONE/ACETAMINOPHEN 5-325 MG TABLET PO PRN ×3 (03:04→12:16)
[2022-06-26 04:30] VITALS: BP 125/73
[2022-06-26 07:28] LABS: GLUCOMETER DEV NAME(LOC) 6N.2B; GLUCOSE,POINT OF CARE 118 MG/DL (70-110)
[2022-06-26 08:00] VITALS: BP 130/69
[2022-06-26] MEDS: MULTIVITAMINS WITH MINERALS, THERAPEUTIC TABLET PO SCH (08:05)
[2022-06-26] MEDS: PANTOPRAZOLE SODIUM 40 MG DR TABLET PO SCH (08:05)
[2022-06-26] MEDS: HEPARIN SODIUM,PORCINE 5,000 UNITS/ML VIAL SQ SCH ×3 (08:06→23:27)
[2022-06-26] MEDS: INSULIN LISPRO 100 UNITS/ML SQ PRN ×2 (11:43→21:44)
[2022-06-26 15:10] VITALS: BP 121/62
[2022-06-26 16:53] LABS: GLUCOMETER DEV NAME(LOC) 6N.2B; GLUCOSE,POINT OF CARE 161 MG/DL (70-110)
[2022-06-26 18:48] LABS: GLUCOMETER DEV NAME(LOC) 6N.1; GLUCOSE,POINT OF CARE 103 MG/DL (70-110)
[2022-06-26 21:57] VITALS: BP 160/91
[2022-06-26 23:48] LABS: GLUCOMETER DEV NAME(LOC) 6N.1; GLUCOSE,POINT OF CARE 152 MG/DL (70-110)
[2022-06-27 05:36] VITALS: BP 119/68
[2022-06-27 07:41] LABS: GLUCOMETER DEV NAME(LOC) 6N.2B; GLUCOSE,POINT OF CARE 97 MG/DL (70-110)
[2022-06-27 08:19] VITALS: BP 119/76
[2022-06-27] MEDS: MULTIVITAMINS WITH MINERALS, THERAPEUTIC TABLET PO SCH (08:21)
[2022-06-27] MEDS: PANTOPRAZOLE SODIUM 40 MG DR TABLET PO SCH (08:21)
[2022-06-27] MEDS: HEPARIN SODIUM,PORCINE 5,000 UNITS/ML VIAL SQ SCH ×3 (08:21→23:44)
[2022-06-27] MEDS: INSULIN LISPRO 100 UNITS/ML SQ PRN (11:21)
[2022-06-27 13:16] LABS: GLUCOMETER DEV NAME(LOC) 6N.1; GLUCOSE,POINT OF CARE 145 MG/DL (70-110)
[2022-06-27 16:18] VITALS: BP 106/65
[2022-06-27 20:00] VITALS: BP 109/67
[2022-06-28 03:55] VITALS: BP 112/71
[2022-06-28 05:56] LABS: GLUCOMETER DEV NAME(LOC) 6N.2B; GLUCOSE,POINT OF CARE 108 MG/DL (70-110)
[2022-06-28] MEDS: HYDROCODONE/ACETAMINOPHEN 5-325 MG TABLET PO PRN ×2 (06:46→16:33)
[2022-06-28] MEDS: MULTIVITAMINS WITH MINERALS, THERAPEUTIC TABLET PO SCH (07:57)
[2022-06-28] MEDS: PANTOPRAZOLE SODIUM 40 MG DR TABLET PO SCH (07:57)
[2022-06-28] MEDS: HEPARIN SODIUM,PORCINE 5,000 UNITS/ML VIAL SQ SCH ×3 (07:58→23:53)
[2022-06-28 09:06] LABS: GLUCOMETER DEV NAME(LOC) 6N.1; GLUCOSE,POINT OF CARE 127 MG/DL (70-110)
[2022-06-28 09:06] LABS: GLUCOMETER DEV NAME(LOC) 6N.1; GLUCOSE,POINT OF CARE 80 MG/DL (70-110)
[2022-06-28 09:52] VITALS: BP 135/77
[2022-06-28 15:26] LABS: GLUCOMETER DEV NAME(LOC) 6N.2B; GLUCOSE,POINT OF CARE 124 MG/DL (70-110)
[2022-06-28 17:17] VITALS: BP 116/70
[2022-06-28 20:14] VITALS: BP 108/78
[2022-06-28] MEDS: INSULIN LISPRO 100 UNITS/ML SQ PRN (21:22)
[2022-06-28 23:01] LABS: GLUCOMETER DEV NAME(LOC) 6N.1; GLUCOSE,POINT OF CARE 90 MG/DL (70-110)
[2022-06-28 23:01] LABS: GLUCOMETER DEV NAME(LOC) 6N.1; GLUCOSE,POINT OF CARE 147 MG/DL (70-110)
[2022-06-29 06:04] VITALS: BP 127/75
[2022-06-29 07:25] VITALS: BP 128/76
[2022-06-29 07:56] LABS: GLUCOMETER DEV NAME(LOC) 6N.1; GLUCOSE,POINT OF CARE 111 MG/DL (70-110)
[2022-06-29] MEDS: PANTOPRAZOLE SODIUM 40 MG DR TABLET PO SCH (08:43)
[2022-06-29] MEDS: MULTIVITAMINS WITH MINERALS, THERAPEUTIC TABLET PO SCH (08:43)
[2022-06-29] MEDS: HEPARIN SODIUM,PORCINE 5,000 UNITS/ML VIAL SQ SCH ×3 (08:43→23:54)
[2022-06-29 12:06] LABS: GLUCOMETER DEV NAME(LOC) 6N.2B; GLUCOSE,POINT OF CARE 124 MG/DL (70-110)
[2022-06-29] MEDS: MORPHINE SULFATE 2 MG/ML SYRINGE IVP PRN (13:05)
[2022-06-29 16:42] VITALS: BP 122/70
[2022-06-29 20:16] LABS: GLUCOMETER DEV NAME(LOC) 6N.2B; GLUCOSE,POINT OF CARE 89 MG/DL (70-110)
[2022-06-29] MEDS: INSULIN LISPRO 100 UNITS/ML SQ PRN (20:20)
[2022-06-29 20:28] VITALS: BP 137/81
[2022-06-30] MEDS: MAGNESIUM HYDROXIDE SUSPENSION 30 ML UDCUP PO PRN (00:42)
[2022-06-30 01:31] LABS: GLUCOMETER DEV NAME(LOC) 6N.1; GLUCOSE,POINT OF CARE 148 MG/DL (70-110)
[2022-06-30 04:44] VITALS: BP 129/79
[2022-06-30 06:56] LABS: GLUCOMETER DEV NAME(LOC) 6N.2B; GLUCOSE,POINT OF CARE 123 MG/DL (70-110)
[2022-06-30] MEDS: MULTIVITAMINS WITH MINERALS, THERAPEUTIC TABLET PO SCH (08:13)
[2022-06-30] MEDS: HEPARIN SODIUM,PORCINE 5,000 UNITS/ML VIAL SQ SCH ×3 (08:13→23:18)
[2022-06-30] MEDS: PANTOPRAZOLE SODIUM 40 MG DR TABLET PO SCH (08:14)
[2022-06-30 08:21] VITALS: BP 150/90
[2022-06-30] MEDS: INSULIN LISPRO 100 UNITS/ML SQ PRN (11:39)
[2022-06-30] MEDS: HYDROCODONE/ACETAMINOPHEN 5-325 MG TABLET PO PRN (11:39)
[2022-06-30 12:06] LABS: GLUCOMETER DEV NAME(LOC) 6N.2B; GLUCOSE,POINT OF CARE 150 MG/DL (70-110)
[2022-06-30 16:27] VITALS: BP 117/75
[2022-06-30 19:56] LABS: GLUCOMETER DEV NAME(LOC) 6N.2B; GLUCOSE,POINT OF CARE 99 MG/DL (70-110)
[2022-06-30 19:58] VITALS: BP 109/67
[2022-07-01 03:17] LABS: GLUCOMETER DEV NAME(LOC) 6N.2B; GLUCOSE,POINT OF CARE 127 MG/DL (70-110)
[2022-07-01 03:50] VITALS: BP 123/63
[2022-07-01] MEDS: INSULIN LISPRO 100 UNITS/ML SQ PRN ×2 (05:53→11:15)
[2022-07-01 06:11] LABS: BASOPHILS % (AUTO) 0.5 % (0.0-2.0); HEMATOCRIT 32.4 % (41-53); HEMOGLOBIN 11.1 g/dL (13.5-17.5); LYMPHOCYTES # (AUTO) 1.5 K/uL (1.0-4.8); LYMPHOCYTES % (AUTO) 29.2 % (22.0-44.0); MEAN CORPUSCULAR HEMOGLOBIN 30.9 pg (26.0-34.0); MEAN CORPUSCULAR HGB CONC 34.2 G/dL (31.0-37.0); MEAN CORPUSCULAR VOLUME 90 fL (80-100); MONOCYTES # (AUTO) 0.4 K/uL (0.1-1.0); MONOCYTES % (AUTO) 8.8 % (2.0-9.0); NEUTROPHILS # (AUTO) 2.9 K/uL (1.8-7.7); NEUTROPHILS % (AUTO) 57.5 % (40.0-70.0); PLATELET COUNT (AUTO) 125 K/uL (150-450); RED BLOOD CELL COUNT(AUTO) 3.58 MIL/uL (4.50-5.90); RED CELL DISTRIBUTION WIDTH 15.3 % (11.5-14.5)
[2022-07-01 06:28] LABS: ALANINE AMINOTRANSFERASE 21 U/L (12-78); ALBUMIN 3.3 g/dL (3.4-5.0); ALKALINE PHOSPHATASE 98 U/L (46-116); ANION GAP 6 mmol/L (8-16); ASPARTATE AMINOTRANSFERASE 15 U/L (15-37); BILIRUBIN,TOTAL 0.3 mg/dL (0.1-1.0); CALCIUM, TOTAL 8.7 mg/dL (8.8-10.5); CARBON DIOXIDE 28 mmol/L (22-29); CHLORIDE 104 mmol/L (98-107); CREATININE 0.96 mg/dL (0.60-1.30); GLOMERULAR FILTR. RATE CALC > 60 mL/min (>60); GLUCOSE,RANDOM 148 mg/dL (70-110); SODIUM SERUM 138 mmol/L (136-145); TOTAL PROTEIN, SERUM 7.5 g/dL (6.4-8.2); UREA NITROGEN, BLOOD 20 mg/dL (7-18)
[2022-07-01 08:05] VITALS: BP 124/56
[2022-07-01] MEDS: PANTOPRAZOLE SODIUM 40 MG DR TABLET PO SCH (08:06)
[2022-07-01] MEDS: HEPARIN SODIUM,PORCINE 5,000 UNITS/ML VIAL SQ SCH ×3 (08:06→23:45)
[2022-07-01] MEDS: MULTIVITAMINS WITH MINERALS, THERAPEUTIC TABLET PO SCH (08:06)
[2022-07-01 09:16] LABS: GLUCOMETER DEV NAME(LOC) 6N.2B; GLUCOSE,POINT OF CARE 143 MG/DL (70-110)
[2022-07-01] MEDS: HYDROCODONE/ACETAMINOPHEN 5-325 MG TABLET PO PRN (11:57)
[2022-07-01] MEDS ORDERED: SODIUM CL IRRIG SOLN BOTTLE 0 ML IRRIG ONE (13:06)
[2022-07-01] MEDS ORDERED: SODIUM CHLORIDE 0.9% IRRIG BTL 1,000 ML IRRIG ONE (13:07)
[2022-07-01 15:18] VITALS: BP 99/55
[2022-07-01 18:16] LABS: GLUCOMETER DEV NAME(LOC) 6N.2B; GLUCOSE,POINT OF CARE 146 MG/DL (70-110)
[2022-07-01 18:16] LABS: GLUCOMETER DEV NAME(LOC) 6N.1; GLUCOSE,POINT OF CARE 89 MG/DL (70-110)
[2022-07-01 20:12] VITALS: BP 104/63
[2022-07-02 00:11] LABS: GLUCOMETER DEV NAME(LOC) 6N.2B; GLUCOSE,POINT OF CARE 79 MG/DL (70-110)
[2022-07-02 04:24] VITALS: BP 102/58
[2022-07-02 07:48] VITALS: BP 117/68
[2022-07-02] MEDS: HEPARIN SODIUM,PORCINE 5,000 UNITS/ML VIAL SQ SCH ×3 (07:56→23:22)
[2022-07-02] MEDS: PANTOPRAZOLE SODIUM 40 MG DR TABLET PO SCH (07:56)
[2022-07-02] MEDS: MULTIVITAMINS WITH MINERALS, THERAPEUTIC TABLET PO SCH (07:56)
[2022-07-02 08:26] LABS: GLUCOMETER DEV NAME(LOC) 6N.2B; GLUCOSE,POINT OF CARE 107 MG/DL (70-110)
[2022-07-02] MEDS: INSULIN LISPRO 100 UNITS/ML SQ PRN (11:23)
[2022-07-02 12:51] LABS: GLUCOMETER DEV NAME(LOC) 6N.2B; GLUCOSE,POINT OF CARE 175 MG/DL (70-110)
[2022-07-02] MEDS: HYDROCODONE/ACETAMINOPHEN 5-325 MG TABLET PO PRN (14:39)
[2022-07-02 15:31] VITALS: BP 105/66
[2022-07-02 20:00] VITALS: BP 127/60
[2022-07-02 20:01] LABS: GLUCOMETER DEV NAME(LOC) 6N.1; GLUCOSE,POINT OF CARE 95 MG/DL (70-110)
[2022-07-02 23:26] LABS: GLUCOMETER DEV NAME(LOC) 6N.2B; GLUCOSE,POINT OF CARE 98 MG/DL (70-110)
[2022-07-03 05:04] VITALS: BP 116/76
[2022-07-03 06:31] LABS: GLUCOMETER DEV NAME(LOC) 6N.1; GLUCOSE,POINT OF CARE 83 MG/DL (70-110)
[2022-07-03 07:40] VITALS: BP 115/66
[2022-07-03] MEDS: HEPARIN SODIUM,PORCINE 5,000 UNITS/ML VIAL SQ SCH ×2 (08:37→16:00)
[2022-07-03] MEDS: MULTIVITAMINS WITH MINERALS, THERAPEUTIC TABLET PO SCH (08:37)
[2022-07-03] MEDS: PANTOPRAZOLE SODIUM 40 MG DR TABLET PO SCH (08:37)
[2022-07-03] MEDS: INSULIN LISPRO 100 UNITS/ML SQ PRN ×2 (11:36→17:56)
[2022-07-03 15:15] VITALS: BP 118/63
[2022-07-03 16:31] LABS: GLUCOMETER DEV NAME(LOC) 6N.1; GLUCOSE,POINT OF CARE 138 MG/DL (70-110)
[2022-07-03] MEDS: HYDROCODONE/ACETAMINOPHEN 5-325 MG TABLET PO PRN (19:02)
[2022-07-03 19:31] LABS: GLUCOMETER DEV NAME(LOC) 6N.1; GLUCOSE,POINT OF CARE 93 MG/DL (70-110)
[2022-07-03 20:36] VITALS: BP 111/63
[2022-07-04 05:10] VITALS: BP 108/65
[2022-07-04 05:46] LABS: GLUCOMETER DEV NAME(LOC) 6N.2B; GLUCOSE,POINT OF CARE 202 MG/DL (70-110)
[2022-07-04] MEDS: HYDROCODONE/ACETAMINOPHEN 5-325 MG TABLET PO PRN ×2 (05:48→19:27)
[2022-07-04 08:01] LABS: GLUCOMETER DEV NAME(LOC) 6N.2B; GLUCOSE,POINT OF CARE 110 MG/DL (70-110)
[2022-07-04 08:11] VITALS: BP 126/77
[2022-07-04] MEDS: MULTIVITAMINS WITH MINERALS, THERAPEUTIC TABLET PO SCH (09:00)
[2022-07-04] MEDS: PANTOPRAZOLE SODIUM 40 MG DR TABLET PO SCH (09:00)
[2022-07-04] MEDS: HEPARIN SODIUM,PORCINE 5,000 UNITS/ML VIAL SQ SCH ×3 (09:01→16:30)
[2022-07-04 11:21] LABS: GLUCOMETER DEV NAME(LOC) 6N.1; GLUCOSE,POINT OF CARE 162 MG/DL (70-110)
[2022-07-04] MEDS: INSULIN LISPRO 100 UNITS/ML SQ PRN (12:13)
[2022-07-04 16:03] VITALS: BP 97/60
[2022-07-04 21:03] VITALS: BP 106/56
[2022-07-05] MEDS: HEPARIN SODIUM,PORCINE 5,000 UNITS/ML VIAL SQ SCH ×4 (00:17→23:39)
[2022-07-05 04:59] VITALS: BP 112/61
[2022-07-05 07:22] LABS: BASOPHILS % (AUTO) 0.5 % (0.0-2.0); HEMATOCRIT 32.8 % (41-53); HEMOGLOBIN 10.8 g/dL (13.5-17.5); LYMPHOCYTES # (AUTO) 1.5 K/uL (1.0-4.8); LYMPHOCYTES % (AUTO) 34.5 % (22.0-44.0); MEAN CORPUSCULAR VOLUME 91 fL (80-100); MONOCYTES # (AUTO) 0.4 K/uL (0.1-1.0); MONOCYTES % (AUTO) 8.5 % (2.0-9.0); NEUTROPHILS # (AUTO) 2.3 K/uL (1.8-7.7); NEUTROPHILS % (AUTO) 52.5 % (40.0-70.0); PLATELET COUNT (AUTO) 132 K/uL (150-450); RED CELL DISTRIBUTION WIDTH 14.9 % (11.5-14.5)
[2022-07-05 07:41] LABS: GLUCOMETER DEV NAME(LOC) 6N.1; GLUCOSE,POINT OF CARE 103 MG/DL (70-110)
[2022-07-05 07:56] LABS: ANION GAP 10 mmol/L (8-16); CALCIUM, TOTAL 8.8 mg/dL (8.8-10.5); CARBON DIOXIDE 24 mmol/L (22-29); CHLORIDE 106 mmol/L (98-107); CREATININE 0.86 mg/dL (0.60-1.30); GLOMERULAR FILTR. RATE CALC > 60 mL/min (>60); GLUCOSE,RANDOM 106 mg/dL (70-110); POTASSIUM 3.8 mmol/L (3.5-5.1); SODIUM SERUM 140 mmol/L (136-145); UREA NITROGEN, BLOOD 15 mg/dL (7-18)
[2022-07-05] MEDS: PANTOPRAZOLE SODIUM 40 MG DR TABLET PO SCH (08:13)
[2022-07-05] MEDS: MULTIVITAMINS WITH MINERALS, THERAPEUTIC TABLET PO SCH (08:13)
[2022-07-05 08:37] VITALS: BP 128/78
[2022-07-05 12:11] LABS: GLUCOMETER DEV NAME(LOC) 6N.1; GLUCOSE,POINT OF CARE 111 MG/DL (70-110)
[2022-07-05 16:10] VITALS: BP 103/62
[2022-07-05 17:31] LABS: GLUCOMETER DEV NAME(LOC) 6N.1; GLUCOSE,POINT OF CARE 119 MG/DL (70-110)
[2022-07-05] MEDS: INSULIN LISPRO 100 UNITS/ML SQ PRN (20:10)
[2022-07-05 20:32] VITALS: BP 106/67
[2022-07-05 23:11] LABS: GLUCOMETER DEV NAME(LOC) 6N.1; GLUCOSE,POINT OF CARE 179 MG/DL (70-110)
[2022-07-06 06:20] VITALS: BP 122/64
[2022-07-06 06:51] LABS: GLUCOMETER DEV NAME(LOC) 6N.2B; GLUCOSE,POINT OF CARE 133 MG/DL (70-110)
[2022-07-06 07:42] VITALS: BP 117/63
[2022-07-06] MEDS: HEPARIN SODIUM,PORCINE 5,000 UNITS/ML VIAL SQ SCH ×2 (08:26→15:51)
[2022-07-06] MEDS: MULTIVITAMINS WITH MINERALS, THERAPEUTIC TABLET PO SCH (08:26)
[2022-07-06] MEDS: PANTOPRAZOLE SODIUM 40 MG DR TABLET PO SCH (08:26)
[2022-07-06] MEDS: INSULIN LISPRO 100 UNITS/ML SQ PRN ×2 (11:53→17:39)
[2022-07-06 15:23] VITALS: BP 124/64
[2022-07-06 15:31] LABS: GLUCOMETER DEV NAME(LOC) 6N.2B; GLUCOSE,POINT OF CARE 123 MG/DL (70-110)
[2022-07-06 18:31] LABS: GLUCOMETER DEV NAME(LOC) 6N.2B; GLUCOSE,POINT OF CARE 99 MG/DL (70-110)
[2022-07-06 19:48] VITALS: BP 101/54
[2022-07-07] MEDS: HEPARIN SODIUM,PORCINE 5,000 UNITS/ML VIAL SQ SCH ×4 (00:29→23:23)
[2022-07-07 04:24] VITALS: BP 115/67
[2022-07-07] MEDS: INSULIN LISPRO 100 UNITS/ML SQ PRN (06:07)
[2022-07-07 06:32] LABS: GLUCOMETER DEV NAME(LOC) 6N.2B; GLUCOSE,POINT OF CARE 145 MG/DL (70-110)
[2022-07-07 07:41] LABS: BASOPHILS % (AUTO) 0.5 % (0.0-2.0); EOSINOPHILS % (AUTO) 3.2 % (1.0-6.0); HEMATOCRIT 32.4 % (41-53); HEMOGLOBIN 10.8 g/dL (13.5-17.5); LYMPHOCYTES # (AUTO) 1.4 K/uL (1.0-4.8); LYMPHOCYTES % (AUTO) 26.2 % (22.0-44.0); MEAN CORPUSCULAR HEMOGLOBIN 30.1 pg (26.0-34.0); MEAN CORPUSCULAR HGB CONC 33.3 G/dL (31.0-37.0); MEAN CORPUSCULAR VOLUME 91 fL (80-100); MONOCYTES # (AUTO) 0.4 K/uL (0.1-1.0); MONOCYTES % (AUTO) 7.7 % (2.0-9.0); NEUTROPHILS # (AUTO) 3.2 K/uL (1.8-7.7); NEUTROPHILS % (AUTO) 62.4 % (40.0-70.0); PLATELET COUNT (AUTO) 136 K/uL (150-450); RED BLOOD CELL COUNT(AUTO) 3.59 MIL/uL (4.50-5.90)
[2022-07-07 08:04] LABS: ANION GAP 7 mmol/L (8-16); CALCIUM, TOTAL 8.3 mg/dL (8.8-10.5); CARBON DIOXIDE 27 mmol/L (22-29); CHLORIDE 104 mmol/L (98-107); CREATININE 0.91 mg/dL (0.60-1.30); GLOMERULAR FILTR. RATE CALC > 60 mL/min (>60); GLUCOSE,RANDOM 122 mg/dL (70-110); POTASSIUM 3.6 mmol/L (3.5-5.1); SODIUM SERUM 138 mmol/L (136-145); UREA NITROGEN, BLOOD 16 mg/dL (7-18)
[2022-07-07 08:15] VITALS: BP 113/63
[2022-07-07] MEDS: MULTIVITAMINS WITH MINERALS, THERAPEUTIC TABLET PO SCH (08:37)
[2022-07-07] MEDS: PANTOPRAZOLE SODIUM 40 MG DR TABLET PO SCH (08:37)
[2022-07-07] MEDS: HYDROCODONE/ACETAMINOPHEN 5-325 MG TABLET PO PRN (09:32)
[2022-07-07 16:14] VITALS: BP 117/65
[2022-07-07 17:41] LABS: GLUCOMETER DEV NAME(LOC) 6N.1; GLUCOSE,POINT OF CARE 108 MG/DL (70-110)
[2022-07-07 19:31] LABS: GLUCOMETER DEV NAME(LOC) 6N.2B; GLUCOSE,POINT OF CARE 96 MG/DL (70-110)
[2022-07-07 19:31] LABS: GLUCOMETER DEV NAME(LOC) 6N.2B; GLUCOSE,POINT OF CARE 134 MG/DL (70-110)
[2022-07-07 20:42] VITALS: BP 131/68
[2022-07-07 23:16] LABS: GLUCOMETER DEV NAME(LOC) 6N.2B; GLUCOSE,POINT OF CARE 128 MG/DL (70-110)
[2022-07-08 05:22] VITALS: BP 129/77
[2022-07-08 07:34] VITALS: BP 121/68
[2022-07-08 08:11] LABS: GLUCOMETER DEV NAME(LOC) 6N.2B; GLUCOSE,POINT OF CARE 124 MG/DL (70-110)
[2022-07-08] MEDS: PANTOPRAZOLE SODIUM 40 MG DR TABLET PO SCH (08:49)
[2022-07-08] MEDS: HEPARIN SODIUM,PORCINE 5,000 UNITS/ML VIAL SQ SCH ×3 (08:49→23:23)
[2022-07-08] MEDS: MULTIVITAMINS WITH MINERALS, THERAPEUTIC TABLET PO SCH (08:49)
[2022-07-08] MEDS: HYDROCODONE/ACETAMINOPHEN 5-325 MG TABLET PO PRN (08:51)
[2022-07-08 12:46] LABS: GLUCOMETER DEV NAME(LOC) 6N.1; GLUCOSE,POINT OF CARE 127 MG/DL (70-110)
[2022-07-08 15:49] VITALS: BP 132/79
[2022-07-08 19:31] LABS: GLUCOMETER DEV NAME(LOC) 6N.2B; GLUCOSE,POINT OF CARE 102 MG/DL (70-110)
[2022-07-08 20:20] VITALS: BP 106/60
[2022-07-09 01:16] LABS: GLUCOMETER DEV NAME(LOC) 6N.1; GLUCOSE,POINT OF CARE 101 MG/DL (70-110)
[2022-07-09] MEDS: HYDROCODONE/ACETAMINOPHEN 5-325 MG TABLET PO PRN (04:23)
[2022-07-09 04:25] VITALS: BP 106/65
[2022-07-09 07:45] LABS: BASOPHILS % (AUTO) 0.5 % (0.0-2.0); EOSINOPHILS % (AUTO) 3.4 % (1.0-6.0); HEMATOCRIT 33.8 % (41-53); HEMOGLOBIN 11.5 g/dL (13.5-17.5); LYMPHOCYTES # (AUTO) 1.6 K/uL (1.0-4.8); LYMPHOCYTES % (AUTO) 32.7 % (22.0-44.0); MEAN CORPUSCULAR HEMOGLOBIN 30.6 pg (26.0-34.0); MEAN CORPUSCULAR VOLUME 90 fL (80-100); MONOCYTES # (AUTO) 0.4 K/uL (0.1-1.0); NEUTROPHILS # (AUTO) 2.7 K/uL (1.8-7.7); NEUTROPHILS % (AUTO) 55.4 % (40.0-70.0); PLATELET COUNT (AUTO) 148 K/uL (150-450); RED BLOOD CELL COUNT(AUTO) 3.76 MIL/uL (4.50-5.90); RED CELL DISTRIBUTION WIDTH 15.1 % (11.5-14.5)
[2022-07-09 07:46] LABS: GLUCOMETER DEV NAME(LOC) 6N.1; GLUCOSE,POINT OF CARE 116 MG/DL (70-110)
[2022-07-09 07:56] LABS: ANION GAP 3 mmol/L (8-16); CALCIUM, TOTAL 8.9 mg/dL (8.8-10.5); CARBON DIOXIDE 32 mmol/L (22-29); CHLORIDE 103 mmol/L (98-107); CREATININE 1.05 mg/dL (0.60-1.30); GLOMERULAR FILTR. RATE CALC > 60 mL/min (>60); GLUCOSE,RANDOM 126 mg/dL (70-110); SODIUM SERUM 138 mmol/L (136-145); UREA NITROGEN, BLOOD 16 mg/dL (7-18)
[2022-07-09 08:00] VITALS: BP 126/70
[2022-07-09] MEDS: MULTIVITAMINS WITH MINERALS, THERAPEUTIC TABLET PO SCH (08:50)
[2022-07-09] MEDS: PANTOPRAZOLE SODIUM 40 MG DR TABLET PO SCH (08:50)
[2022-07-09] MEDS: HEPARIN SODIUM,PORCINE 5,000 UNITS/ML VIAL SQ SCH ×2 (08:51→16:17)
[2022-07-09 15:34] VITALS: BP 110/60
[2022-07-09 18:31] LABS: GLUCOMETER DEV NAME(LOC) 6N.2B; GLUCOSE,POINT OF CARE 110 MG/DL (70-110)
[2022-07-09 18:32] LABS: GLUCOMETER DEV NAME(LOC) 6N.2B; GLUCOSE,POINT OF CARE 96 MG/DL (70-110)
[2022-07-09 20:10] VITALS: BP 107/64
[2022-07-10 00:01] LABS: GLUCOMETER DEV NAME(LOC) 6N.2B; GLUCOSE,POINT OF CARE 100 MG/DL (70-110)
[2022-07-10] MEDS: HEPARIN SODIUM,PORCINE 5,000 UNITS/ML VIAL SQ SCH ×3 (00:03→17:59)
[2022-07-10 03:30] VITALS: BP 120/68
[2022-07-10 07:51] LABS: GLUCOMETER DEV NAME(LOC) 6N.1; GLUCOSE,POINT OF CARE 102 MG/DL (70-110)
[2022-07-10] MEDS: MULTIVITAMINS WITH MINERALS, THERAPEUTIC TABLET PO SCH (08:26)
[2022-07-10] MEDS: PANTOPRAZOLE SODIUM 40 MG DR TABLET PO SCH (08:27)
[2022-07-10 08:51] VITALS: BP 97/69
[2022-07-10] MEDS: INSULIN LISPRO 100 UNITS/ML SQ PRN (12:17)
[2022-07-10 12:21] LABS: GLUCOMETER DEV NAME(LOC) 6N.1; GLUCOSE,POINT OF CARE 161 MG/DL (70-110)
[2022-07-10 16:05] VITALS: BP 112/64
[2022-07-10 18:56] LABS: GLUCOMETER DEV NAME(LOC) 6N.2B; GLUCOSE,POINT OF CARE 87 MG/DL (70-110)
[2022-07-10 20:56] LABS: GLUCOMETER DEV NAME(LOC) 6N.1; GLUCOSE,POINT OF CARE 136 MG/DL (70-110)
[2022-07-10 20:58] VITALS: BP 113/64
[2022-07-11] MEDS: HEPARIN SODIUM,PORCINE 5,000 UNITS/ML VIAL SQ SCH ×4 (00:25→23:41)
[2022-07-11 05:34] VITALS: BP 119/75
[2022-07-11 05:41] LABS: GLUCOMETER DEV NAME(LOC) 6N.1; GLUCOSE,POINT OF CARE 117 MG/DL (70-110)
[2022-07-11 07:49] VITALS: BP 114/76
[2022-07-11] MEDS: PANTOPRAZOLE SODIUM 40 MG DR TABLET PO SCH (10:09)
[2022-07-11] MEDS: MULTIVITAMINS WITH MINERALS, THERAPEUTIC TABLET PO SCH (10:09)
[2022-07-11 11:51] LABS: GLUCOMETER DEV NAME(LOC) 6S.1B; GLUCOSE,POINT OF CARE 127 MG/DL (70-110)
[2022-07-11 15:20] VITALS: BP 122/78
[2022-07-11 20:32] VITALS: BP 115/69
[2022-07-12 05:27] VITALS: BP 115/59
[2022-07-12] MEDS: PANTOPRAZOLE SODIUM 40 MG DR TABLET PO SCH (08:08)
[2022-07-12] MEDS: MULTIVITAMINS WITH MINERALS, THERAPEUTIC TABLET PO SCH (08:08)
[2022-07-12] MEDS: HEPARIN SODIUM,PORCINE 5,000 UNITS/ML VIAL SQ SCH ×3 (08:08→22:47)
[2022-07-12 10:39] VITALS: BP 117/61
[2022-07-12 11:11] LABS: GLUCOMETER DEV NAME(LOC) 6S.1B; GLUCOSE,POINT OF CARE 121 MG/DL (70-110)
[2022-07-12 11:11] LABS: GLUCOMETER DEV NAME(LOC) 6S.1B; GLUCOSE,POINT OF CARE 93 MG/DL (70-110)
[2022-07-12 11:12] LABS: GLUCOMETER DEV NAME(LOC) 6N.1; GLUCOSE,POINT OF CARE 113 MG/DL (70-110)
[2022-07-12] MEDS: INSULIN LISPRO 100 UNITS/ML SQ PRN (11:50)
[2022-07-12 15:46] LABS: GLUCOMETER DEV NAME(LOC) 6N.1; GLUCOSE,POINT OF CARE 143 MG/DL (70-110)
[2022-07-12 17:25] VITALS: BP 112/73
[2022-07-12 19:56] LABS: GLUCOMETER DEV NAME(LOC) 6S.1B; GLUCOSE,POINT OF CARE 89 MG/DL (70-110)
[2022-07-12 20:30] VITALS: BP 120/61
[2022-07-13 05:22] LABS: GLUCOMETER DEV NAME(LOC) 6S.1B; GLUCOSE,POINT OF CARE 129 MG/DL (70-110)
[2022-07-13 05:41] LABS: GLUCOMETER DEV NAME(LOC) 6N.1; GLUCOSE,POINT OF CARE 106 MG/DL (70-110)
[2022-07-13 08:00] VITALS: BP 119/69
[2022-07-13] MEDS: MULTIVITAMINS WITH MINERALS, THERAPEUTIC TABLET PO SCH (08:18)
[2022-07-13] MEDS: PANTOPRAZOLE SODIUM 40 MG DR TABLET PO SCH (08:19)
[2022-07-13] MEDS: HEPARIN SODIUM,PORCINE 5,000 UNITS/ML VIAL SQ SCH ×3 (08:19→23:57)
[2022-07-13 12:11] LABS: GLUCOMETER DEV NAME(LOC) 6S.1B; GLUCOSE,POINT OF CARE 106 MG/DL (70-110)
[2022-07-13 15:25] VITALS: BP 104/56
[2022-07-13 17:26] LABS: GLUCOMETER DEV NAME(LOC) 6S.1B; GLUCOSE,POINT OF CARE 157 MG/DL (70-110)
[2022-07-13] MEDS: INSULIN LISPRO 100 UNITS/ML SQ PRN (17:26)
[2022-07-13 21:30] VITALS: BP 111/63
[2022-07-13 22:51] LABS: GLUCOMETER DEV NAME(LOC) 6S.1B; GLUCOSE,POINT OF CARE 100 MG/DL (70-110)
[2022-07-14 05:10] VITALS: BP 125/62
[2022-07-14 06:16] LABS: GLUCOMETER DEV NAME(LOC) 6S.1B; GLUCOSE,POINT OF CARE 137 MG/DL (70-110)
[2022-07-14] MEDS: PANTOPRAZOLE SODIUM 40 MG DR TABLET PO SCH (08:21)
[2022-07-14] MEDS: MULTIVITAMINS WITH MINERALS, THERAPEUTIC TABLET PO SCH (08:21)
[2022-07-14] MEDS: HEPARIN SODIUM,PORCINE 5,000 UNITS/ML VIAL SQ SCH (08:25)
[2022-07-14 10:03] VITALS: BP 105/64
[2022-07-14 12:17] LABS: GLUCOMETER DEV NAME(LOC) 6S.1B; GLUCOSE,POINT OF CARE 131 MG/DL (70-110)
[2022-07-14] MEDS ORDERED: GLYB2.5T5 PO (13:06)
[2022-07-14] MEDS ORDERED: MULT-248 PO (13:07)
== END 2022-07-14 14:33 | disposition home health service (06) | DRG 364 ==
LOC: EMS 14:02 → 5S 22:49 → 6S 06-01 18:50
PROVIDERS: ADMIT Hospitalist; ATTEND Hospitalist
PROC: 0KBT0ZZ Excision of Left Lower Leg Muscle, Open Approach (ICD-10-PCS; principal; 2022-06-14 20:00)
DX: L89.524 Pressure ulcer of left ankle, stage 4 (principal); E44.0 Moderate protein-calorie malnutrition; D69.6 Thrombocytopenia, unspecified; E87.20 Acidosis, unspecified; R65.10 Systemic inflammatory response syndrome (SIRS) of non-infectious origin without acute organ dysfunction; E87.1 Hypo-osmolality and hyponatremia; B88.8 Other specified infestations; E11.65 Type 2 diabetes mellitus with hyperglycemia; L03.116 Cellulitis of left lower limb; E87.6 Hypokalemia; Z20.822 Contact with and (suspected) exposure to COVID-19; Z59.00 Homelessness unspecified; D64.9 Anemia, unspecified; W18.39XA Other fall on same level, initial encounter; Y93.89 Activity, other specified; Y92.89 Other specified places as the place of occurrence of the external cause; Y99.8 Other external cause status; Z68.31 Body mass index [BMI] 31.0-31.9, adult; Z79.84 Long term (current) use of oral hypoglycemic drugs
CPT/HCPCS: 36245; 36569; 70450; 71045; 73718; 73720; 76937; 80048; 80053; 80202; 82550; 82962; 83036; 83605; 83735; 84100; 84132; 85025; 86140; 87015; 87040; 87070; 87081; 87101; 87186; 87205; 87206; 93925; 93926; 93971; 97110; 97162; 97164; 97530; 99291; G0480; J0295; J1100; J1644; J1815; J1885; J2250; J2270; J2405; J2543; J2704; J3010; J3370; J3490; J7030; J7040; J7050; J7060; Q9967; 36415-L1; 36415-TC; Z7610

== ENCOUNTER 2023-11-27 09:25 | Inpatient (IN) | payer OTHER ==
[~2023-11-27] VITALS: Ht 167.6 cm; Wt 76.0 kg
[~2023-11-27 09:25] MED LIST: ACET-2247 PO; DOCU-385 PO; ENOX30SY19 SQ; GLYB2.5T5 PO; INSU100V SQ; MAGN-169 PO; MULT-248 PO; VANC1.2523 IV
[2023-11-27 11:00] LABS: BASOPHILS % (AUTO) 0.2 % (0.0-2.0); EOSINOPHILS % (AUTO) 1.3 % (1.0-6.0); HEMATOCRIT 33.5 % (41-53); HEMOGLOBIN 11.1 g/dL (13.5-17.5); LYMPHOCYTES # (AUTO) 0.9 K/uL (1.0-4.8); LYMPHOCYTES % (AUTO) 9.7 % (22.0-44.0); MEAN CORPUSCULAR HEMOGLOBIN 29.9 pg (26.0-34.0); MEAN CORPUSCULAR HGB CONC 33.2 G/dL (31.0-37.0); MEAN CORPUSCULAR VOLUME 90 fL (80-100); MONOCYTES # (AUTO) 0.6 K/uL (0.1-1.0); MONOCYTES % (AUTO) 6.7 % (2.0-9.0); NEUTROPHILS # (AUTO) 7.4 K/uL (1.8-7.7); NEUTROPHILS % (AUTO) 82.1 % (40.0-70.0); PLATELET COUNT (AUTO) 220 K/uL (150-450); RED BLOOD CELL COUNT(AUTO) 3.71 MIL/uL (4.50-5.90); RED CELL DISTRIBUTION WIDTH 14.6 % (11.5-14.5); WHITE BLOOD COUNT (AUTO) 9.1 K/uL (4.5-11.0)
[2023-11-27 11:03] LABS: ERYTHROCYTE SEDIMENTATION RATE 61 MM/HR (0-20)
[2023-11-27 11:14] LABS: ANION GAP 9 mmol/L (8-16); B-TYPE NATRIURETIC PEPTIDE < 5 pg/mL (0-100); CALCIUM, TOTAL 9.1 mg/dL (8.8-10.5); CARBON DIOXIDE 28 mmol/L (22-29); CHLORIDE 101 mmol/L (98-107); CREATININE 0.96 mg/dL (0.60-1.30); GLOMERULAR FILTR. RATE CALC > 60 mL/min (>60); GLUCOSE,RANDOM 164 mg/dL (70-110); POTASSIUM 3.4 mmol/L (3.5-5.1); SODIUM SERUM 138 mmol/L (136-145); UREA NITROGEN, BLOOD 12 mg/dL (7-18)
[2023-11-27] MEDS: VANCOMYCIN 1GM/WATER(PEG/NADA) 200 ML IV ONE (11:17)
[2023-11-27 11:19] LABS: ALANINE AMINOTRANSFERASE 16 U/L (12-78); ALBUMIN 3.1 g/dL (3.4-5.0); ALKALINE PHOSPHATASE 111 U/L (46-116); ASPARTATE AMINOTRANSFERASE 14 U/L (15-37); BILIRUBIN,TOTAL 1.8 mg/dL (0.1-1.0); C-REACTIVE PROTEIN QUANT 9.45 mg/dL (0.00-0.30)
[2023-11-27 13:00] VITALS: BP 138/80; PULSE 102; RESP 18; TEMP 97.6
[2023-11-27] MEDS ORDERED: MAGNESIUM HYDROXIDE SUSPENSION 30 ML UDCUP PO PRN (13:15)
[2023-11-27] MEDS ORDERED: DEXTROSE 50%-WATER 25 GM/50 ML SYRINGE IVP PRN (13:15)
[2023-11-27] MEDS ORDERED: MORPHINE SULFATE 2 MG/ML SYRINGE IVP PRN (13:15)
[2023-11-27] MEDS ORDERED: BISACODYL 10 MG RECTAL RECTAL SUPPOSITORY PR PRN (13:15)
[2023-11-27] MEDS ORDERED: ONDANSETRON HCL 4 MG/2 ML VIAL IVP PRN (13:15)
[2023-11-27] MEDS ORDERED: ZOLPIDEM TARTRATE 5 MG TABLET PO PRN (13:15)
[2023-11-27] MEDS: HEPARIN SODIUM,PORCINE 5,000 UNITS/ML VIAL SQ SCH (16:39)
[2023-11-27 20:16] LABS: GLUCOMETER DEV NAME(LOC) 6N.2B; GLUCOSE,POINT OF CARE 117 MG/DL (70-110)
[2023-11-27 20:27] VITALS: BP 102/66; PULSE 92; RESP 18; TEMP 98.3
[2023-11-27] MEDS ORDERED: SODIUM CHLORIDE 0.9% 500 ML IV ONE (20:58)
[2023-11-27] MEDS: VANCOMYCIN 1GM/WATER(PEG/NADA) 200 ML IV SCH (21:08)
[2023-11-27] MEDS: DOCUSATE SODIUM 100 MG CAPSULE PO SCH (21:08)
[2023-11-27] MEDS: INSULIN LISPRO 100 UNITS/ML SQ PRN (21:15)
[2023-11-27 21:31] LABS: GLUCOMETER DEV NAME(LOC) 6N.2B; GLUCOSE,POINT OF CARE 180 MG/DL (70-110)
[2023-11-28 05:09] VITALS: BP 110/56; PULSE 76; RESP 18; TEMP 97.5
[2023-11-28 06:06] LABS: GLUCOMETER DEV NAME(LOC) 6N.2B; GLUCOSE,POINT OF CARE 173 MG/DL (70-110)
[2023-11-28 07:45] LABS: ANION GAP 10 mmol/L (8-16); CALCIUM, TOTAL 8.3 mg/dL (8.8-10.5); CARBON DIOXIDE 24 mmol/L (22-29); CHLORIDE 103 mmol/L (98-107); CREATININE 0.79 mg/dL (0.60-1.30); GLOMERULAR FILTR. RATE CALC > 60 mL/min (>60); GLUCOSE,RANDOM 160 mg/dL (70-110); POTASSIUM 3.8 mmol/L (3.5-5.1); SODIUM SERUM 137 mmol/L (136-145); UREA NITROGEN, BLOOD 10 mg/dL (7-18)
[2023-11-28] MEDS: PANTOPRAZOLE SODIUM 40 MG DR TABLET PO SCH (08:38)
[2023-11-28 08:54] VITALS: BP 115/67; PULSE 105; RESP 18; TEMP 98.1
[2023-11-28] MEDS: MULTIVITAMINS WITH MINERALS, THERAPEUTIC TABLET PO SCH (10:56)
[2023-11-28] MEDS: HYDROCODONE/ACETAMINOPHEN 5-325 MG TABLET PO PRN (17:13)
[2023-11-28 18:06] LABS: GLUCOMETER DEV NAME(LOC) 6S.2; GLUCOSE,POINT OF CARE 122 MG/DL (70-110)
[2023-11-28 18:06] LABS: GLUCOMETER DEV NAME(LOC) 6N.2B; GLUCOSE,POINT OF CARE 155 MG/DL (70-110)
[2023-11-28 18:21] VITALS: BP 140/65; PULSE 69; RESP 16; TEMP 98.5
[2023-11-28] MEDS ORDERED: PNEUMOCOCCAL VACCINE POLYVALENT 0.5 ML SYRINGE [PPSV23] IM. ONE (18:45)
[2023-11-28 19:49] VITALS: BP 137/65; PULSE 81; RESP 18; TEMP 98.4
[2023-11-29] MEDS: ACETAMINOPHEN 325 MG TABLET PO PRN (04:44)
[2023-11-29 04:55] VITALS: BP 107/78; PULSE 104; RESP 19; TEMP 99.8
[2023-11-29 06:35] LABS: GLUCOMETER DEV NAME(LOC) 6S.2; GLUCOSE,POINT OF CARE 182 MG/DL (70-110)
[2023-11-29 06:35] LABS: GLUCOMETER DEV NAME(LOC) 6S.2; GLUCOSE,POINT OF CARE 146 MG/DL (70-110)
[2023-11-29 08:22] VITALS: BP 113/66; PULSE 99; RESP 18; TEMP 97.9
[2023-11-29 08:37] LABS: ANION GAP 10 mmol/L (8-16); CALCIUM, TOTAL 8.2 mg/dL (8.8-10.5); CARBON DIOXIDE 25 mmol/L (22-29); CHLORIDE 102 mmol/L (98-107); CREATININE 0.78 mg/dL (0.60-1.30); GLOMERULAR FILTR. RATE CALC > 60 mL/min (>60); GLUCOSE,RANDOM 129 mg/dL (70-110); POTASSIUM 3.2 mmol/L (3.5-5.1); SODIUM SERUM 137 mmol/L (136-145); UREA NITROGEN, BLOOD 6 mg/dL (7-18); VANCOMYCIN,RANDOM 10.5 mcg/mL (25.0-50.0)
[2023-11-29 12:16] LABS: GLUCOMETER DEV NAME(LOC) 6S.2; GLUCOSE,POINT OF CARE 181 MG/DL (70-110)
[2023-11-29 14:41] VITALS: BP 103/54; PULSE 96; RESP 18; TEMP 99.9
[2023-11-29 17:21] LABS: GLUCOMETER DEV NAME(LOC) 6S.2; GLUCOSE,POINT OF CARE 203 MG/DL (70-110)
[2023-11-29 18:00] VITALS: TEMP 98.6
[2023-11-29 20:01] VITALS: BP 114/63; PULSE 109; RESP 18; TEMP 99.7
[2023-11-29] MEDS: VANCOMYCIN 1.5 GM/WATER(PEG) 300 ML IV SCH (20:37)
[2023-11-29] MEDS ORDERED: POTASSIUM CHL 10 MEQ/WATER 50 ML IV PRN (21:00)
[2023-11-29 21:11] LABS: GLUCOMETER DEV NAME(LOC) 6N.2B; GLUCOSE,POINT OF CARE 161 MG/DL (70-110)
[2023-11-29] MEDS: POTASSIUM CHLORIDE 20 MEQ ER TABLET PO PRN (21:29)
[2023-11-30 05:09] VITALS: BP 107/66; PULSE 99; RESP 18; TEMP 99.2
[2023-11-30 07:01] LABS: GLUCOMETER DEV NAME(LOC) 6N.2B; GLUCOSE,POINT OF CARE 173 MG/DL (70-110)
[2023-11-30 07:54] LABS: ANION GAP 8 mmol/L (8-16); CALCIUM, TOTAL 8.1 mg/dL (8.8-10.5); CARBON DIOXIDE 26 mmol/L (22-29); CHLORIDE 102 mmol/L (98-107); CREATININE 0.87 mg/dL (0.60-1.30); GLOMERULAR FILTR. RATE CALC > 60 mL/min (>60); GLUCOSE,RANDOM 166 mg/dL (70-110); POTASSIUM 3.8 mmol/L (3.5-5.1); SODIUM SERUM 136 mmol/L (136-145); UREA NITROGEN, BLOOD 6 mg/dL (7-18)
[2023-11-30 07:59] VITALS: BP 102/68; PULSE 99; RESP 18; TEMP 99.1
[2023-11-30 11:41] LABS: GLUCOMETER DEV NAME(LOC) 6S.2; GLUCOSE,POINT OF CARE 224 MG/DL (70-110)
== END 2023-11-30 11:25 | DRG 349 ==
LOC: EMS 09:25 → EDH 12:06 → 6S 12:25
PROVIDERS: ADMIT Internal Medicine; ATTEND Internal Medicine
DX: T87.44 Infection of amputation stump, left lower extremity (principal); L03.115 Cellulitis of right lower limb; E44.0 Moderate protein-calorie malnutrition; E11.51 Type 2 diabetes mellitus with diabetic peripheral angiopathy without gangrene; L03.116 Cellulitis of left lower limb; D63.8 Anemia in other chronic diseases classified elsewhere; Z89.612 Acquired absence of left leg above knee; Z68.27 Body mass index [BMI] 27.0-27.9, adult; L03.311 Cellulitis of abdominal wall; S30.810A Abrasion of lower back and pelvis, initial encounter; Y83.5 Amputation of limb(s) as the cause of abnormal reaction of the patient, or of later complication, without mention of misadventure at the time of the procedure; E11.65 Type 2 diabetes mellitus with hyperglycemia; Y92.89 Other specified places as the place of occurrence of the external cause; Z59.00 Homelessness unspecified; Z99.3 Dependence on wheelchair; Z91.199 Patient's noncompliance with other medical treatment and regimen due to unspecified reason; Y93.89 Activity, other specified
CPT/HCPCS: 80048; 80053; 80202; 82962; 83880; 85025; 85379; 85651; 86140; 87040; 87070; 87186; 87205; 93971; 97116; 97162; 99285; J1644; J7040; Q9967

== ENCOUNTER 2024-04-27 10:27 | Emergency (ER) | payer OTHER ==
[~2024-04-27] VITALS: Ht 167.6 cm; Wt 72.7 kg
[2024-04-27 10:42] VITALS: BP 165/99; PULSE 80; RESP 16; TEMP 98.6; O2SAT 97
== END 2024-04-27 14:20 | disposition home or self-care (01) ==
LOC: EMS 10:29
DX: Z44 Encounter for fitting and adjustment of external prosthetic device (principal); E11.9 Type 2 diabetes mellitus without complications; Z89.612 Acquired absence of left leg above knee; Z79.4 Long term (current) use of insulin
CPT/HCPCS: 82962; 99283